=== PATIENT | male | born 1955 | race Caucasian/White ===

== ENCOUNTER 2020-09-11 09:22 | Inpatient (IN) | payer BC ==
[2020-09-11] MEDS ORDERED: Iopamidol-370 76% 500 ML 1 ML ONE (10:28)
--- NOTE | 2020-09-11 10:41 | CT ---
Exam: CT angiogram of the chest HISTORY: Stage IV lung cancer. Patient is undergoing chemotherapy and radiation therapy COMPARISON: None TECHNIQUE: CT angiogram of the chest is performed in the axial plane. Three-dimensional reformatted i mages are submitted for interpretation FINDINGS: Mediastinum: Enlarged prevascular lymph nodes. Ict Educator lymph node measures 2.1 x 1.8 cm. Enlar ged subcarinal lymph node measuring 1.7 x 1.5 cm. There is bilateral hilar lymphadenopathy. HEART: Normal size. No significant pericardial fluid. Aorta: No aneurysm or dissection Upper solid abdominal viscera: No abnormality enhancement. Trachea and central bronchi: Patent Pleural spaces: No effusion Lung parenchyma: Multifocal consolidation probably peripheral in location. Possibility of posttreatme nt change and/or residual tumor in the right lower lobe is suspected. Post pneumonia or atelectasis cannot be excluded. Chronic changes in mild bronchiectasis in the left lower lobe is noted. Pneumothorax: None Osseous structures: Stable multifocal osseous metastases with sclerotic and lytic foci. No evidence o f a pathologic fracture. Pulmonary arteries: Adequate contrast opacification pulmonary arterial system to the level of segment al arteries. No filling defect to suggest pulmonary embolism IMPRESSION: 1. No evidence of pulmonary artery embolism to the level of segmental arteries 2. Consolidation right lower lobe due to atelectasis, post treatment change or pneumonia. Residual tu mor cannot be excluded. 3. Osseous metastases without pathologic fracture 4. Hilar and mediastinal lymphadenopathy due to metastases
[2020-09-11] MEDS ORDERED: Ondansetron PF 4 MG/2 ML Vial ONE (10:55)
[2020-09-11] MEDS ORDERED: Cefepime 2 GM VIAL ONE ×2 (11:25→11:26)
[2020-09-11 11:35] LABS: Bacteria/HPF None Seen HPF (None Seen); Bilirubin Negative (Negative); Blood, Urine Negative (Negative); Clarity Clear (Clear); Glucose, Urine (Dipstick) 200 mg/dL (Negative); Ketone, Urine 60 mg/dL (Negative); Leukocyte Negative Leu/uL (Negative); Nitrite Negative (Negative); Protein, Urine (Dipstick) 30 mg/dL (Neg-Trace); Squamous Epithelial 0-3 HPF (0-3); Urobilinogen Normal mg/dL (Less than 2)
[2020-09-11 11:38] LABS: Specific Gravity, Urine 1.047 (1.002-1.036)
[2020-09-11] MEDS ORDERED: Ondansetron ODT 4 MG TAB PO PRN (12:16)
[2020-09-11] MEDS ORDERED: HYDROcodone/Acetaminophen 5/325 mg Tablet PO PRN (12:16)
[2020-09-11] MEDS ORDERED: Calcium Carbonate 500 MG ChewTAB PO PRN (12:16)
[2020-09-11] MEDS ORDERED: Guaifenesin DM 100-10/5 ML UDCUP PO PRN (12:16)
--- NOTE | 2020-09-11 12:25 | PDOC.HHP ---
Hospitalist HPI fever sob chest pain History of Present Illness: Case of an 64y/o male with a pmhx of hld, htn and stage 4 lung cancer on chemo + radio, last chemo was sep 02 last radio on may 05, who comes to hospital due to fever dyspnea and chest pain. patient presents as a transfer from the [facility] emergency department secondary to chest pain. The patient states that he was seen at [facility] in [facility] the night before last for fever and dyspnea. He states that he started running fever this past Wednesday evening and that he has been running fever ever since. He and his note that he was evaluated and that his oncologist was contacted at that time. They state that his evaluation was unremarkable and they sent him home on 2 antibiotics. He reported to the [place] emergency department last night secondary to chest pain. He notes that at approximately midnight he began to have substernal chest pain. He cannot describe the pain, however he describes it as a constant pain. He denies any exacerbating or relieving factors. At the ED patient was diagnosed with sepsis secondary to pneumonia and hospitalist was called for further evaluation and management. Past History: PMHx: as above PSHx: vasectomy, appendectomy. hernia repair, tonsillectomy FHx: hnt Social: denies use of alcohol tabacco and any other drugs Hospitalist HPI ROS All other systems reviewed; all pertinent +/- noted in HPI/Subj Hospitalist Exam General Appearance: NAD, awake alert Eye: PERRL, anicteric sclera ENT: normocephalic atraumatic, no oropharyngeal lesions Neck: supple, symmetric, no JVD, no thyromegaly Heart: RRR, no murmur, no gallops, no rubs Respiratory: CTAB, no wheezes, no rales, no ronchi Gastrointestinal: soft, non-tender, non-distended Extremities: no cyanosis, no clubbing, no edema Skin: normal turgor, no lesions, no rashes Neurological: cranial nerve grossly intact, normal sensation to touch, no weakness Musculoskeletal: normal tone, normal strength, no muscle wasting Psychiatric: normal affect, normal behavior, A&O x 3 Hospitalist Results Lab results: Laboratory Last Values Lactic Acid 1.7 mmol/L (0.5-2.2) 09/11/20 11:42 Troponin I Less than 0.010 ng/mL (< 0.028) 09/11/20 10:19 Urine Color Yellow (Yellow) 09/11/20 10:50 Urine Clarity Clear (Clear) 09/11/20 10:50 Urine pH 6.0 (5.0-9.0) 09/11/20 10:50 Ur Specific [place] 1.047 (1.002-1.036) H 09/11/20 10:50 Urine Protein 30 mg/dL (Neg-Trace) A 09/11/20 10:50 Urine Glucose (UA) 200 mg/dL (Negative) A 09/11/20 10:50 Urine Ketones 60 mg/dL (Negative) A 09/11/20 10:50 Urine Blood Negative (Negative) 09/11/20 10:50 Urine Nitrite Negative (Negative) 09/11/20 10:50 Urine Bilirubin Negative (Negative) 09/11/20 10:50 Urine Urobilinogen Normal mg/dL (Less than 2) 09/11/20 10:50 Ur Leukocyte Esterase Negative Linette/uL (Negative) 09/11/20 10:50 Urine RBC 4-6 HPF (0-3) A 09/11/20 10:50 Urine WBC 4-6 HPF (0-3) A 09/11/20 10:50 Ur Squamous Epith Cells 0-3 HPF (0-3) 09/11/20 10:50 Urine Bacteria None Seen HPF (None Seen) 09/11/20 10:50 Hospitalist H&P A/P (1) Sepsis Code(s): A41.9 - SEPSIS, UNSPECIFIED ORGANISM Status: Acute (2) Pneumonia Code(s): J18.9 - PNEUMONIA, UNSPECIFIED ORGANISM Status: Acute (3) HTN (hypertension) Code(s): I10 - ESSENTIAL (PRIMARY) HYPERTENSION Status: Acute (4) HLD (hyperlipidemia) Code(s): E78.5 - HYPERLIPIDEMIA, UNSPECIFIED Status: Acute (5) Stage 4 lung cancer Code(s): C34.90 - MALIGNANT NEOPLASM OF UNSP PART OF UNSP BRONCHUS OR LUNG Status: Acute Plan: Case of an 64y/o male with the stated pmhx who present with sepsis secondary to pna sepsis / pna - fever + bandemia with a chest ct with a rll consolidation - will start cefepime + vanc - 02 supplementation if needed - duo nebs - f/u blood cultures - normal LA - ivfs hnt - continue home meds hld - continue home meds stage 4 lung ca - oncologist from [facility] - on yolanda - oncology consuled - pain management chest pain - troponin negative x2, will continue to trend - ekg w/o st ischemic change - likely not of cardiac origen
[2020-09-11] MEDS ORDERED: Potassium Chloride 20 MEQ TAB PO SCH (12:30)
[2020-09-11 13:14] LABS: Troponin I Less than 0.010 ng/mL (< 0.028)
[2020-09-11] MEDS: Sodium Chloride 0.9% 1,000 ML IV SCH (15:57)
[2020-09-11] MEDS: HYDROcodone/Acetaminophen 5/325 mg Tablet PO PRN ×2 (15:57→20:35)
[2020-09-11 16:01] VITALS: BMI 27.3
[2020-09-11 16:21] LABS: Troponin I Less than 0.010 ng/mL (< 0.028)
[2020-09-11] MEDS ORDERED: VANCOMYCIN 2 GRAM/400 ML BAG 2 GM in Premix Bag 1 BAG IVPB SCH (16:30)
[2020-09-11] MEDS: Ondansetron PF 4 MG/2 ML Vial IVP PRN (18:05)
[2020-09-11] MEDS ORDERED: Promethazine 25 MG TAB PO SCH (20:15)
[2020-09-11] MEDS ORDERED: Metoclopramide HCl 10 MG TAB PO SCH (20:15)
[2020-09-11] MEDS ORDERED: fentaNYL 50 mcg/hour Patch TD SCH (21:00)
[2020-09-11] MEDS: Cefepime 2 GM in Sodium Chloride 0.9% 100 ML IVPB SCH (22:15)
[2020-09-12] MEDS: HYDROcodone/Acetaminophen 5/325 mg Tablet PO PRN ×4 (01:02→20:05)
[2020-09-12 04:30] LABS: ALT (SGPT) 9 U/L (8-55); AST (SGOT) 12 U/L (5-34); Albumin 2.7 g/dL (3.4-4.8); Alkaline Phosphatase 83 U/L (40-110); Anion Gap 12 mmol/L (10-20); BUN (Urea Nitrogen) 4 mg/dL (8.4-25.7); Bilirubin, Total 0.6 mg/dL (0.2-1.2); Calc. Creatinine Clearance 186 mL/min (70-130); Calcium 8.3 mg/dL (7.8-10.44); Carbon Dioxide 27 mmol/L (23-31); Chloride 100 mmol/L (98-107); Globulin 4.1 g/dL (2.4-3.5); Glucose 124 mg/dL (80-115); Protein, Total 6.8 g/dL (5.8-8.1); Sodium 136 mmol/L (136-145)
[2020-09-12 04:34] LABS: Potassium 2.8 mmol/L (3.5-5.1)
[2020-09-12 04:42] LABS: Band 10 % (5-11); Hemoglobin 8.2 g/dL (14.0-18.0); Hypochromia SLIGHT = 6-15 cells (100X) (0-5/hpf); Lymphocytes 30 % (21-51); MDiff Complete? YES; Mean Corpuscular HGB CONC 31.5 g/dL (32.0-36.0); Mean Corpuscular Volume 88.8 fL (78.0-98.0); Mean Platelet Volume 7.9 fL (7.4-10.4); Monocytes 32 % (0-10); Neutrophil 28 % (42-75); Nucleated RBC 1 % (0); Platelet Count 237 thou/uL (130-400); Platelet Morphology Comment Appears Adequate; RBC Distribution Width 16.3 % (11.5-14.5); Red Blood Cell (RBC) Count 2.92 mill/uL (4.70-6.10); Reflex for Review?? YES; White Blood Cell (WBC) Count 1.6 thou/uL (4.8-10.8)
[2020-09-12] MEDS ORDERED: Potassium Chloride 20 MEQ TAB PO SCH (04:45)
[2020-09-12] MEDS: VANCOMYCIN 1.75 GM/350 ML BAG 1.75 GM in Premix Bag 1 BAG IVPB SCH ×2 (06:20→18:23)
[2020-09-12] MEDS: Sodium Chloride 0.9% 1,000 ML IV SCH ×2 (06:22→16:34)
[2020-09-12] MEDS: Ondansetron PF 4 MG/2 ML Vial IVP PRN (06:23)
--- NOTE | 2020-09-12 07:29 | PDOC.HOSPP ---
- Subjective Encounter Date: 09/12/20 Encounter Time: 07:27 Subjective: fever/cchills since admission. chest pain is chronic - Objective Vital Signs & Weight: Vital Signs (12 hours) Temp Pulse Resp BP Pulse Ox 09/12/20 03:51 98.6 F 106 H 18 105/70 94 L 09/12/20 00:44 95 09/12/20 00:08 94 L 09/12/20 00:00 97.6 F 112 H 20 127/69 96 09/11/20 19:28 16 96 Weight Weight 207 lb 11.2 oz I&O: 09/11/20 09/12/20 09/13/20 06:59 06:59 06:59 Intake Total 680 Balance 680 Result Diagrams: 09/12/20 03:32 09/12/20 03:32 Hospitalist ROS - Medication Medications: Active Medications Generic Name Dose Route Start Last Admin Trade Name Freq PRN Reason Stop Dose Admin Hydrocodone Bitart/Acetaminophen 2 tab 09/11/20 12:16 09/12/20 06:25 Hydrocodone/Acetaminophen 5/325 Mg Tablet PO 2 tab Q4H PRN Administration Severe Pain (7-10) Albuterol/Ipratropium 3 ml 09/11/20 13:00 09/12/20 00:44 Ipratropium/Albuterol Sulfate 3 Ml Neb NEB 3 ml [id number] CHRISSIE Administration Fentanyl 50 mcg 09/11/20 21:00 09/11/20 20:23 Fentanyl 50 Mcg/Hour Patch TD 50 mcg Q3D CHRISSIE Administration Cefepime HCl 2 gm/ Sodium 100 mls @ 200 mls/hr 09/11/20 23:00 09/11/20 22:15 Chloride IVPB 100 mls 1100,2300 CHRISSIE Administration Sodium Chloride 1,000 mls @ 70 mls/hr 09/11/20 12:30 09/12/20 06:22 Normal Saline 0.9% IV 1,000 mls .[id number] CHRISSIE Administration Vancomycin HCl 1.75 gm/ Device 350 mls @ 175 mls/hr 09/12/20 06:00 09/12/20 06:20 IVPB 350 mls 0600,1800 CHRISSIE Administration Ondansetron HCl 4 mg 09/11/20 12:16 09/12/20 06:23 Ondansetron Pf 4 Mg/2 Ml Vial IVP 4 mg Q6H PRN Administration Nausea/Vomiting Hospitalist Exam Vitals: Vital Signs (12 hours) Temp Pulse Resp BP Pulse Ox 09/12/20 03:51 98.6 F 106 H 18 105/70 94 L 09/12/20 00:44 95 09/12/20 00:08 94 L 09/12/20 00:00 97.6 F 112 H 20 127/69 96 09/11/20 19:28 16 96 Weight Weight 207 lb 11.2 oz General Appearance: awake alert Neck: no JVD Heart: RRR, no murmur Respiratory - other findings: bilat basilar rhonchi Gastrointestinal: soft, non-distended, no palpable masses Extremities: no edema Hosp A/P (1) Pneumonia Code(s): J18.9 - PNEUMONIA, UNSPECIFIED ORGANISM Status: Acute Qualifiers: Pneumonia type: due to Pneumococcus Laterality: right Lung location: lower lobe of lung Qualified Code(s): J13 - Pneumonia due to Streptococcus pneumoniae (2) Leukopenia due to antineoplastic chemotherapy Code(s): D70.1 - AGRANULOCYTOSIS SECONDARY TO CANCER CHEMOTHERAPY; T45.1X5A - ADVERSE EFFECT OF ANTINEOPLASTIC AND IMMUNOSUP DRUGS, INIT Status: Acute (3) Anticoagulant long-term use Code(s): Z79.01 - NURSING HOME (CURRENT) USE OF ANTICOAGULANTS Status: Chronic (4) HLD (hyperlipidemia) Code(s): E78.5 - HYPERLIPIDEMIA, UNSPECIFIED Status: Chronic Qualifiers: Hyperlipidemia type: unspecified Qualified Code(s): E78.5 - Hyperlipidemia, unspecified (5) HTN (hypertension) Code(s): I10 - ESSENTIAL (PRIMARY) HYPERTENSION Status: Chronic Qualifiers: Hypertension type: essential hypertension Qualified Code(s): I10 - Essential (primary) hypertension (6) Stage 4 lung cancer Code(s): C34.90 - MALIGNANT NEOPLASM OF UNSP PART OF UNSP BRONCHUS OR LUNG Status: Chronic Qualifiers: Laterality: right Qualified Code(s): C34.91 - Malignant neoplasm of u nspecified part of right bronchus or lung - Plan blood C&S pending cont broad spectrum antibx monitor WBC, 1 week post chemotx Hx DVT- cont anticoag
[2020-09-12] MEDS: Promethazine 25 MG TAB PO SCH (08:51)
[2020-09-12] MEDS: Senokot 8.6 MG TAB PO SCH (08:51)
[2020-09-12] MEDS: Metoclopramide HCl 10 MG TAB PO SCH ×3 (08:52→16:00)
[2020-09-12] MEDS: Folic Acid 1 MG TAB PO SCH (08:52)
[2020-09-12] MEDS ORDERED: fentaNYL 50 mcg/hour Patch TD SCH ×2 (09:00→21:00)
[2020-09-12] MEDS ORDERED: Prevnar 13-Val Conj/PF 0.5 ML SYRINGE IM ONE (09:00)
[2020-09-12] MEDS: Apixaban 5 MG TAB PO SCH ×2 (10:35→20:44)
[2020-09-12] MEDS: Amlodipine 5 MG TAB PO SCH (10:40)
[2020-09-12] MEDS: Metoprolol Tartrate 25 MG TAB PO SCH ×2 (10:41→20:05)
[2020-09-12] MEDS: Cefepime 2 GM in Sodium Chloride 0.9% 100 ML IVPB SCH ×2 (11:44→22:24)
[2020-09-12] MEDS: HYDROmorphone 2 MG TAB PO PRN ×2 (18:23→22:24)
[2020-09-13] MEDS: HYDROcodone/Acetaminophen 5/325 mg Tablet PO PRN ×3 (00:09→20:40)
[2020-09-13] MEDS: HYDROmorphone 2 MG TAB PO PRN ×5 (03:01→22:53)
[2020-09-13] MEDS: Sodium Chloride 0.9% 1,000 ML IV SCH (03:02)
[2020-09-13 05:53] LABS: Vancomycin, Trough 11.3 ug/mL
[2020-09-13] MEDS: VANCOMYCIN 1.75 GM/350 ML BAG 1.75 GM in Premix Bag 1 BAG IVPB SCH (06:08)
[2020-09-13] MEDS: Amlodipine 5 MG TAB PO SCH (08:05)
[2020-09-13] MEDS: Metoclopramide HCl 10 MG TAB PO SCH ×3 (08:05→17:16)
[2020-09-13] MEDS: Promethazine 25 MG TAB PO SCH (08:05)
[2020-09-13] MEDS: Metoprolol Tartrate 25 MG TAB PO SCH ×2 (08:05→20:39)
[2020-09-13] MEDS: Apixaban 5 MG TAB PO SCH ×2 (08:06→20:39)
[2020-09-13] MEDS: Senokot 8.6 MG TAB PO SCH (08:06)
[2020-09-13] MEDS: Folic Acid 1 MG TAB PO SCH (08:06)
[2020-09-13 08:31] LABS: Anion Gap 11 mmol/L (10-20); BUN (Urea Nitrogen) 4 mg/dL (8.4-25.7); Calc. Creatinine Clearance 200 mL/min (70-130); Carbon Dioxide 27 mmol/L (23-31); Chloride 103 mmol/L (98-107); Glucose 89 mg/dL (80-115); Sodium 138 mmol/L (136-145)
[2020-09-13 08:32] LABS: Potassium 2.9 mmol/L (3.5-5.1)
[2020-09-13 08:36] LABS: Anisocytosis SLIGHT = 6-15 cells (100X) (0-5/hpf); Band 3 % (5-11); Eosinophils 1 % (0-10); Hemoglobin 7.9 g/dL (14.0-18.0); Lymphocytes 11 % (21-51); MDiff Complete? YES; Mean Corpuscular HGB CONC 31.8 g/dL (32.0-36.0); Mean Corpuscular Hemoglobin 28.2 pg (27.0-31.0); Mean Corpuscular Volume 88.9 fL (78.0-98.0); Mean Platelet Volume 7.4 fL (7.4-10.4); Monocytes 36 % (0-10); Neutrophil 48 % (42-75); Platelet Count 285 thou/uL (130-400); Platelet Morphology Comment Appears Adequate; RBC Distribution Width 16.5 % (11.5-14.5); White Blood Cell (WBC) Count 1.7 thou/uL (4.8-10.8)
[2020-09-13] MEDS ORDERED: Potassium Chloride 20 MEQ TAB PO SCH ×2 (11:30→12:00)
[2020-09-13] MEDS: Cefepime 2 GM in Sodium Chloride 0.9% 100 ML IVPB SCH ×2 (11:49→22:54)
--- NOTE | 2020-09-13 12:06 | PDOC.HOSPP ---
- Subjective Encounter Date: 09/13/20 Encounter Time: 12:06 Subjective: pt seen on f/u for pneumonia and chest pain refers is feeling better today, does complained of having another episode of chest pain during the morning, he states he felt some fever overnigh but none were charted. denies cough sob palpitations or diaphoresis - Objective Vital Signs & Weight: Vital Signs (12 hours) Temp Pulse Resp BP BP Pulse Ox 09/13/20 08:05 91 09/13/20 08:00 97.8 F 91 18 94/55 L 96 09/13/20 06:10 88 16 09/13/20 04:00 97.7 F 85 16 99/61 95 09/13/20 00:31 95 14 95 Weight Admit Weight 207 lb 11.2 oz Weight 207 lb 11.2 oz I&O: 09/12/20 09/13/20 09/14/20 06:59 06:59 06:59 Intake Total 680 3790 Output Total 500 Balance 680 3290 Result Diagrams: 09/13/20 07:35 09/13/20 07:35 Hospitalist ROS - Review of Systems All other systems reviewed; all pertinent +/- noted in HPI/Subj - Medication Medications: Active Medications Generic Name Dose Route Start Last Admin Trade Name Freq PRN Reason Stop Dose Admin Hydrocodone Bitart/Acetaminophen 2 tab 09/11/20 12:16 09/13/20 06:11 Hydrocodone/Acetaminophen 5/325 Mg Tablet PO 2 tab Q4H PRN Administration Severe Pain (7-10) Albuterol/Ipratropium 3 ml 09/11/20 13:00 09/13/20 06:10 Ipratropium/Albuterol Sulfate 3 Ml Neb NEB 3 ml [id number] CHRISSIE Administration Amlodipine Besylate 5 mg 09/12/20 09:00 09/13/20 08:05 Amlodipine 5 Mg Tab PO 5 mg DAILY CHRISSIE Administration Apixaban 5 mg 09/12/20 09:00 09/13/20 08:06 Apixaban 5 Mg Tab PO 5 mg BID CHRISSIE Administration Folic Acid 1 mg 09/12/20 09:00 09/13/20 08:06 Folic Acid 1 Mg Tab PO 1 mg DAILY CHRISSIE Administration Hydromorphone HCl 2 mg 09/12/20 07:14 09/13/20 08:03 Hydromorphone 2 Mg Tab PO 2 mg Q4H PRN Administration Moderate to Severe Pain (6-10) Cefepime HCl 2 gm/ Sodium 100 mls @ 200 mls/hr 09/11/20 23:00 09/13/20 11:49 Chloride IVPB 100 mls 1100,2300 CHRISSIE Administration Metoclopramide HCl 10 mg 09/12/20 08:00 09/13/20 08:05 Metoclopramide Hcl 10 Mg Tab PO 10 mg TID-WM CHRISSIE Administration Metoprolol Tartrate 25 mg 09/12/20 09:00 09/13/20 08:05 Metoprolol Tartrate 25 Mg Tab PO 25 mg BID CHRISSIE Administration Ondansetron HCl 4 mg 09/11/20 12:16 09/12/20 06:23 Ondansetron Pf 4 Mg/2 Ml Vial IVP 4 mg Q6H PRN Administration Nausea/Vomiting Pantoprazole Sodium 40 mg 09/12/20 09:00 09/13/20 08:05 Pantoprazole 40 Mg Tab PO 40 mg DAILY CHRISSIE Administration Potassium Chloride 40 meq 09/13/20 11:30 09/13/20 11:49 Potassium Chloride 20 Meq Tab PO 09/13/20 12:30 40 meq NOW CHRISSIE Administration Promethazine HCl 25 mg 09/12/20 09:00 09/13/20 08:05 Promethazine 25 Mg Tab PO 25 mg DAILY CHRISSIE Administration Senna 3 tab 09/12/20 09:00 09/13/20 08:06 Senokot 8.6 Mg Tab PO 3 tab DAILY CHRISSIE Administration Hospitalist Exam Vitals: Vital Signs (12 hours) Temp Pulse Resp BP BP Pulse Ox 09/13/20 08:05 91 09/13/20 08:00 97.8 F 91 18 94/55 L 96 09/13/20 06:10 88 16 09/13/20 04:00 97.7 F 85 16 99/61 95 09/13/20 00:31 95 14 95 Weight Admit Weight 207 lb 11.2 oz Weight 207 lb 11.2 oz General Appearance: NAD, awake alert Eye: PERRL, anicteric sclera ENT: normocephalic atraumatic, no oropharyngeal lesions Neck: supple, symmetric, no JVD, no thyromegaly Heart: RRR, no murmur, no gallops, no rubs Respiratory: CTAB, no wheezes, no rales, no ronchi Gastrointestinal: soft, non-tender, non-distended Extremities: no cyanosis, no clubbing, no edema Skin: normal turgor, no lesions, no rashes Neurological: cranial nerve grossly intact, normal sensation to touch, no weakness Musculoskeletal: normal tone, normal strength, no muscle wasting Psychiatric: normal affect, normal behavior, A&O x 3 Hosp A/P (1) Sepsis Code(s): A41.9 - SEPSIS, UNSPECIFIED ORGANISM Status: Acute (2) Pneumonia Code(s): J18.9 - PNEUMONIA, UNSPECIFIED ORGANISM Status: Acute Qualifiers: Pneumonia type: due to Pneumococcus Laterality: right Lung location: lower lobe of lung Qualified Code(s): J13 - Pneumonia due to Streptococcus pneumoniae (3) HTN (hypertension) Code(s): I10 - ESSENTIAL (PRIMARY) HYPERTENSION Status: Chronic Qualifiers: Hypertension type: essential hypertension Qualified Code(s): I10 - Essential (primary) hypertension (4) HLD (hyperlipidemia) Code(s): E78.5 - HYPERLIPIDEMIA, UNSPECIFIED Status: Chronic Qualifiers: Hyperlipidemia type: unspecified Qualified Code(s): E78.5 - Hyperlipidemia, unspecified (5) Stage 4 lung cancer Code(s): C34.90 - MALIGNANT NEOPLASM OF UNSP PART OF UNSP BRONCHUS OR LUNG Status: Chronic Qualifiers: Laterality: right Qualified Code(s): C34.91 - Malignant neoplasm of unspecified part of right bronchus or lung - Plan sepsis / pna - improved bandemia - on cefepime + vanc - 02 supplementation if needed - duo nebs - cultures negatives up till now hnt - continue home meds hld - continue home meds stage 4 lung ca - oncologist from [facility] - on chemo - pain management chest pain - troponin negative x3, - ekg w/o st ischemic change - had another episode of chest pain this morning, its unclear to me its etiology. patient refered he received radiation on that area but it had never hurt before, last rad on 2019 - would consider stress test after pna tx - potassium was at 2.9 will replace, mg 1.8 will f/u
[2020-09-13] MEDS ORDERED: Vancomycin HCl 1.25 GM in Sodium Chloride 0.9% 250 ML 250 ML IVPB SCH (14:00)
--- NOTE | 2020-09-13 19:28 | CON ---
DATE OF CONSULTATION: REASON FOR CONSULTATION: Lung cancer. HISTORY OF PRESENT ILLNESS: Mr. Key is a 64-year-old gentleman who was diagnosed with stage IV small-cell lung cancer in 04/2020. He underwent radiation and then started chemotherapy with carboplatin, Alimta, and Keytruda. He progressed recently with enlargement in his mediastinal lymph nodes. He started Taxotere chemotherapy with the 1st dose on 09/04. He is managed by [facility] in [place]. He did not receive Neulasta with treatment. He has been running fever for the last several days and talked to his oncologist in [place], who recommended he go to the emergency room. He was transferred here as there was no hospital beds available in [place]. He has been treated with antibiotics and has improvement. His breathing has improved over the last several days. He does complain of constant midsternal pain where he had radiation, but it is managed well with his home medications. PAST MEDICAL HISTORY: 1. Extensive stage small-cell lung cancer. 2. History of blood clots. PAST SURGICAL HISTORY: 1. Vasectomy. 2. Appendectomy. 3. Hernia repair. 4. Tonsillectomy. ALLERGIES: TO CODEINE, LISINOPRIL, AND PENICILLIN. CURRENT MEDICATIONS: 1. Hephzibah. 2. Norvasc. 3. Eliquis. 4. Cefepime. 5. Duragesic patch. 6. Folvite. 7. Robitussin. 8. Dilaudid. 9. Reglan. 10. Lopressor. 11. Vancomycin. 12. Zofran. 13. Protonix. 14. MiraLAX. 15. Phenergan. 16. Senokot. FAMILY HISTORY: Noncontributory. SOCIAL HISTORY: , lives with spouse. No alcohol, tobacco, or illicit drug use. REVIEW OF SYSTEMS: A 12-point review of systems is negative except for noted in HPI. PHYSICAL EXAMINATION: VITAL SIGNS: Temperature is 97.8, pulse is 91, respiratory rate is 16, BP is 111/57, and he is 96 on room air. GENERAL: A well-developed, well-nourished male, in no acute distress. HEENT: Normocephalic and atraumatic. Pupils equal and reactive to light. NECK: Supple. CV: Regular rate and rhythm. LUNGS: Clear anterior. ABDOMEN: Soft. Bowel sounds are positive. EXTREMITIES: No clubbing or cyanosis. NEUROLOGIC: Nonfocal. PERTINENT LABORATORY DATA AND X-RAYS: WBCs are 1.7, hemoglobin 7.9, hematocrit 24.9, platelet count is 285,000, 48% neutrophils, 3% bands, 11% lymphocytes, and 36% monocytes. Sodium 138, potassium 2.9, chloride 103, CO2 is 27, BUN is 4, creatinine 0.51, and calcium 8. Bilirubin 0.6, AST is 12, ALT is 9, and alkaline phosphatase is 83. Serum total protein is 6.8, albumin 2.7, and globulin 4.1. Radiology showed consolidation of the right lower lobe, consistent with pneumonia. ASSESSMENT: 1. Extensive stage small-cell lung cancer, on chemotherapy. 2. Neutropenia secondary to Taxotere chemo. 3. Pneumonia. 4. Chest wall pain. DISCUSSION: The patient has been treated with empiric antibiotics. His breathing has improved and he remains afebrile. His home pain medications of fentanyl and Dilaudid have been resumed. The patient has received his first dose of Taxotere per his . He did not receive any Neulasta support. He is day 9 post treatment, which would be his dangelo with the drop in both the white blood cells and red blood cells. I will give him a short burst of Neupogen over the next couple of days and his white count should improve rapidly. His oncologist is aware of his admission. He can be discharged once he is stable. I think his chest pain is likely inflammatory from his radiation, even though it was several months ago. He likely has some type of scar tissue at this point. 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 Thank you for the consult. Job ID: [id number]
[2020-09-13] MEDS: VANCOMYCIN 1.25 GM/250 ML BAG 1.25 GM in Premix Bag 1 BAG IVPB SCH (20:41)
[2020-09-14] MEDS: HYDROcodone/Acetaminophen 5/325 mg Tablet PO PRN ×3 (00:22→22:09)
[2020-09-14] MEDS: HYDROmorphone 2 MG TAB PO PRN (05:05)
[2020-09-14 05:06] LABS: Hemoglobin 8.2 g/dL (14.0-18.0); Mean Corpuscular Hemoglobin 28.9 pg (27.0-31.0); Mean Corpuscular Volume 90.2 fL (78.0-98.0); Mean Platelet Volume 7.4 fL (7.4-10.4); Platelet Count 293 thou/uL (130-400); Red Blood Cell (RBC) Count 2.84 mill/uL (4.70-6.10); White Blood Cell (WBC) Count 4.2 thou/uL (4.8-10.8)
[2020-09-14] MEDS: VANCOMYCIN 1.25 GM/250 ML BAG 1.25 GM in Premix Bag 1 BAG IVPB SCH ×3 (05:06→20:10)
[2020-09-14 05:07] LABS: Band 21 % (5-11); Lymphocytes 20 % (21-51); MDiff Complete? YES; Metamyelocyte 1 % (0-0); Monocytes 16 % (0-10); Myelocyte 4 % (0-0); Neutrophil 38 % (42-75)
[2020-09-14 05:24] LABS: Anion Gap 13 mmol/L (10-20); BUN (Urea Nitrogen) 6 mg/dL (8.4-25.7); Calc. Creatinine Clearance 189 mL/min (70-130); Calcium 8.1 mg/dL (7.8-10.44); Carbon Dioxide 22 mmol/L (23-31); Chloride 104 mmol/L (98-107); Glucose 102 mg/dL (80-115); Potassium 3.5 mmol/L (3.5-5.1); Sodium 135 mmol/L (136-145)
[2020-09-14] MEDS: Amlodipine 5 MG TAB PO SCH (07:59)
[2020-09-14] MEDS: Apixaban 5 MG TAB PO SCH ×2 (08:00→20:03)
[2020-09-14] MEDS: Metoprolol Tartrate 25 MG TAB PO SCH ×2 (08:00→20:08)
[2020-09-14] MEDS: Folic Acid 1 MG TAB PO SCH (08:00)
[2020-09-14] MEDS: Senokot 8.6 MG TAB PO SCH (08:00)
[2020-09-14] MEDS: Metoclopramide HCl 10 MG TAB PO SCH ×3 (08:00→17:57)
[2020-09-14] MEDS: Cefepime 2 GM in Sodium Chloride 0.9% 100 ML IVPB SCH ×2 (11:21→22:08)
[2020-09-14] MEDS ORDERED: Morphine 4 MG/ML VIAL SLOW IVP SCH (12:00)
[2020-09-14] MEDS ORDERED: HYDROmorphone 2 MG TAB PO SCH (13:00)
[2020-09-14 13:18] LABS: Vancomycin, Trough 15.2 ug/mL
[2020-09-14] MEDS: HYDROmorphone 2 MG TAB PO SCH ×3 (14:16→20:09)
--- NOTE | 2020-09-14 15:25 | PDOC.HOSPP ---
- Subjective Encounter Date: 09/14/20 Encounter Time: 15:25 Subjective: Mr. Key was seen today in follow-up of pneumonia, and chronic cancer related pain. He notes a new pain in his mid chest which has been constant. This started prior to admission. He says his pneumonia symptoms have improved. He is less short of breath. - Objective Vital Signs & Weight: Vital Signs (12 hours) Temp Pulse Resp BP Pulse Ox 09/14/20 13:05 80 12 09/14/20 11:56 97.6 F 94 18 143/86 H 95 09/14/20 08:00 97.9 F 104 H 20 114/67 93 L 09/14/20 07:59 88 09/14/20 06:34 88 12 Weight Admit Weight 207 lb 11.2 oz Weight 207 lb 11.2 oz I&O: 09/13/20 09/14/20 09/15/20 06:59 06:59 06:59 Intake Total 3790 3250 Output Total 500 2275 Balance 3290 975 Result Diagrams: 09/14/20 03:44 09/14/20 03:44 Hospitalist ROS - Medication Medications: Active Medications Generic Name Dose Route Start Last Admin Trade Name Freq PRN Reason Stop Dose Admin Hydrocodone Bitart/Acetaminophen 2 tab 09/11/20 12:16 09/14/20 11:19 Hydrocodone/Acetaminophen 5/325 Mg Tablet PO 2 tab Q4H PRN Administration Severe Pain (7-10) Albuterol/Ipratropium 3 ml 09/11/20 13:00 09/14/20 13:05 Ipratropium/Albuterol Sulfate 3 Ml Neb NEB 3 ml [id number] CHRISSIE Administration Amlodipine Besylate 5 mg 09/12/20 09:00 09/14/20 07:59 Amlodipine 5 Mg Tab PO 5 mg DAILY CHRISSIE Administration Apixaban 5 mg 09/12/20 09:00 09/14/20 08:00 Apixaban 5 Mg Tab PO 5 mg BID CHRISSIE Administration Folic Acid 1 mg 09/12/20 09:00 09/14/20 08:00 Folic Acid 1 Mg Tab PO 1 mg DAILY CHRISSIE Administration Hydromorphone HCl 2 mg 09/14/20 14:00 09/14/20 14:16 Hydromorphone 2 Mg Tab PO 2 mg Q4H CHRISSIE Administration Cefepime HCl 2 gm/ Sodium 100 mls @ 200 mls/hr 09/11/20 23:00 09/14/20 11:21 Chloride IVPB 100 mls 1100,2300 CHRISSIE Administration Vancomycin HCl 1.25 gm/ Device 250 mls @ 166.667 mls/hr 09/13/20 22:00 14:15 IVPB 250 mls 0600,1400,2200 CHRISSIE Administration Metoclopramide HCl 10 mg 09/12/20 08:00 09/14/20 11:40 Metoclopramide Hcl 10 Mg Tab PO 10 mg TID-WM CHRISSIE Administration Metoprolol Tartrate 25 mg 09/12/20 09:00 09/14/20 08:00 Metoprolol Tartrate 25 Mg Tab PO 25 mg BID CHRISSIE Administration Ondansetron HCl 4 mg 09/11/20 12:16 09/12/20 06:23 Ondansetron Pf 4 Mg/2 Ml Vial IVP 4 mg Q6H PRN Administration Nausea/Vomiting Pantoprazole Sodium 40 mg 09/12/20 09:00 09/14/20 08:00 Pantoprazole 40 Mg Tab PO 40 mg DAILY CHRISSIE Administration Senna 3 tab 09/12/20 09:00 09/14/20 08:00 Senokot 8.6 Mg Tab PO 3 tab DAILY CHRISSIE Administration Tbo-Filgrastim 480 mcg 09/13/20 15:00 09/14/20 14:15 Tbo-Filgrastim 480 Mcg/0.8 Ml Syringe SC 480 mcg Q24HR CHRISSIE Administration Hospitalist Exam Vitals: Vital Signs (12 hours) Temp Pulse Resp BP Pulse Ox 09/14/20 13:05 80 12 09/14/20 11:56 97.6 F 94 18 143/86 H 95 09/14/20 08:00 97.9 F 104 H 20 114/67 93 L 09/14/20 07:59 88 09/14/20 06:34 88 12 Weight Admit Weight 207 lb 11.2 oz Weight 207 lb 11.2 oz General Appearance: NAD, awake alert Eye: PERRL, anicteric sclera Heart: RRR, no murmur, no gallops, no rubs, normal peripheral pulses Respiratory: no wheezes, rales (at the bases) Gastrointestinal: soft, non-tender, non-distended, normal bowel sounds, no palpable masses, no hepatomegaly Extremities: no cyanosis, no edema Hosp A/P (1) Pneumonia Code(s): J18.9 - PNEUMONIA, UNSPECIFIED ORGANISM Status: Acute Qualifiers: Pneumonia type: due to Pneumococcus Laterality: right Lung location: lower lobe of lung Qualified Code(s): J13 - Pneumonia due to Streptococcus pneumoniae (2) HLD (hyperlipidemia) Code(s): E78.5 - HYPERLIPIDEMIA, UNSPECIFIED Status: Chronic Qualifiers: Hyperlipidemia type: unspecified Qualified Code(s): E78.5 - Hyperlipidemia, unspecified (3) HTN (hypertension) Code(s): I10 - ESSENTIAL (PRIMARY) HYPERTENSION Status: Chronic Qualifiers: Hypertension type: essential hypertension Qualified Code(s): I10 - Essential (primary) hypertension (4) Stage 4 lung cancer Code(s): C34.90 - MALIGNANT NEOPLASM OF UNSP PART OF UNSP BRONCHUS OR LUNG Status: Chronic Qualifiers: Laterality: right Qualified Code(s): C34.91 - Malignant neoplasm of unspecified part of right bronchus or lung (5) Chronic pain due to neoplasm Code(s): G89.3 - NEOPLASM RELATED PAIN (ACUTE) (CHRONIC) Status: Acute (6) Venous thromboembolism Code(s): I82.90 - ACUTE EMBOLISM AND THROMBOSIS OF UNSPECIFIED VEIN Status: Acute (7) Anticoagulant long-term use Code(s): Z79.01 - CUSTODIAL (CURRENT) USE OF ANTICOAGULANTS Status: Chronic - Plan * Pneumonia in immuno-compromised patient- continue Cefepime and Vancomycin * HTN- blood pressure is stable * Stage 4 lung cancer * Chronic cancer pain- will monitor his pain medication requirement- He has a Fentanyl patch, and will schedule Dilaudid and adjust medications if needed * History of Venous Thrombo-embolic disease- will continue Eliquis
[2020-09-14] MEDS: Polyethylene Glycol 3350 17 GM Packet PO PRN (18:01)
[2020-09-14] MEDS: Promethazine 25 MG TAB PO SCH (20:03)
[2020-09-14] MEDS: fentaNYL 50 mcg/hour Patch TD SCH (20:05)
[2020-09-15] MEDS: HYDROmorphone 2 MG TAB PO SCH ×6 (01:26→21:28)
[2020-09-15] MEDS: HYDROcodone/Acetaminophen 5/325 mg Tablet PO PRN (03:41)
[2020-09-15] MEDS: VANCOMYCIN 1.25 GM/250 ML BAG 1.25 GM in Premix Bag 1 BAG IVPB SCH ×3 (05:23→22:21)
[2020-09-15] MEDS ORDERED: Morphine 4 MG/ML VIAL ONE (05:47)
[2020-09-15] MEDS ORDERED: Morphine 4 MG/ML VIAL SLOW IVP SCH (06:00)
[2020-09-15 07:02] LABS: Hemoglobin 8.5 g/dL (14.0-18.0); Mean Corpuscular Hemoglobin 27.6 pg (27.0-31.0); Mean Platelet Volume 7.2 fL (7.4-10.4); Platelet Count 345 thou/uL (130-400); RBC Distribution Width 17.6 % (11.5-14.5); Red Blood Cell (RBC) Count 3.06 mill/uL (4.70-6.10); White Blood Cell (WBC) Count 17.1 thou/uL (4.8-10.8)
[2020-09-15 07:16] LABS: Anion Gap 10 mmol/L (10-20); BUN (Urea Nitrogen) 6 mg/dL (8.4-25.7); Calc. Creatinine Clearance 179 mL/min (70-130); Calcium 7.8 mg/dL (7.8-10.44); Carbon Dioxide 27 mmol/L (23-31); Chloride 103 mmol/L (98-107); Glucose 134 mg/dL (80-115); Sodium 137 mmol/L (136-145)
[2020-09-15 07:58] LABS: Band 52 % (5-11); Lymphocytes 1 % (21-51); MDiff Complete? YES; Metamyelocyte 4 % (0-0); Monocytes 4 % (0-10); Neutrophil 39 % (42-75); Toxic Granulation SLIGHT
[2020-09-15] MEDS: Senokot 8.6 MG TAB PO SCH (09:03)
[2020-09-15] MEDS: Polyethylene Glycol 3350 17 GM Packet PO PRN (09:03)
[2020-09-15] MEDS: Apixaban 5 MG TAB PO SCH ×2 (09:03→21:22)
[2020-09-15] MEDS: Potassium Chloride 20 MEQ TAB PO SCH (09:03)
[2020-09-15] MEDS: Amlodipine 5 MG TAB PO SCH (09:04)
[2020-09-15] MEDS: Folic Acid 1 MG TAB PO SCH (09:04)
[2020-09-15] MEDS: Metoclopramide HCl 10 MG TAB PO SCH ×3 (09:04→18:09)
[2020-09-15] MEDS: Cefepime 2 GM in Sodium Chloride 0.9% 100 ML IVPB SCH (10:06)
[2020-09-15] MEDS: Metoprolol Tartrate 25 MG TAB PO SCH ×2 (10:07→21:24)
--- NOTE | 2020-09-15 12:21 | PDOC.HOSPP ---
- Subjective Encounter Date: 09/15/20 Encounter Time: 12:19 Subjective: Mr. Key was seen today in follow-up of pneumonia and chest pain. He describes the pain as constant, and radiating straight through to his back. He does not endorse that it is burning in character, but can't really describe it much. - Objective Vital Signs & Weight: Vital Signs (12 hours) Temp Pulse Resp BP BP Pulse Ox 09/15/20 12:00 97.7 F 101 H 18 107/58 L 96 09/15/20 09:04 102 H 09/15/20 08:00 97.9 F 102 H 18 103/63 97 09/15/20 07:13 96 16 09/15/20 04:00 97.8 F 103 H 16 118/70 94 L 09/15/20 01:05 16 Weight Admit Weight 207 lb 11.2 oz Weight 207 lb 11.2 oz I&O: 09/14/20 09/15/20 09/16/20 06:59 06:59 06:59 Intake Total 3250 2210 Output Total 2275 1525 Balance 975 685 Result Diagrams: 09/15/20 06:30 09/15/20 06:30 Hospitalist ROS - Medication Medications: Active Medications Generic Name Dose Route Start Last Admin Trade Name Freq PRN Reason Stop Dose Admin Hydrocodone Bitart/Acetaminophen 2 tab 09/11/20 12:16 09/15/20 03:41 Hydrocodone/Acetaminophen 5/325 Mg Tablet PO 2 tab Q4H PRN Administration Severe Pain (7-10) Albuterol/Ipratropium 3 ml 09/11/20 13:00 09/15/20 07:13 Ipratropium/Albuterol Sulfate 3 Ml Neb NEB 3 ml [id number] CHRISSIE Administration Amlodipine Besylate 5 mg 09/12/20 09:00 09/15/20 09:04 Amlodipine 5 Mg Tab PO 5 mg DAILY CHRISSIE Administration Apixaban 5 mg 09/12/20 09:00 09/15/20 09:03 Apixaban 5 Mg Tab PO 5 mg BID CHRISSIE Administration Fentanyl 50 mcg 09/14/20 21:00 09/14/20 20:05 Fentanyl 50 Mcg/Hour Patch TD 50 mcg Q3DAYS@2100 CHRISSIE Administration Folic Acid 1 mg 09/12/20 09:00 09/15/20 09:04 Folic Acid 1 Mg Tab PO 1 mg DAILY CHRISSIE Administration Hydromorphone HCl 2 mg 09/14/20 14:00 09/15/20 10:06 Hydromorphone 2 Mg Tab PO 2 mg Q4H CHRISSIE Administration Cefepime HCl 2 gm/ Sodium 100 mls @ 200 mls/hr 09/11/20 23:00 09/15/20 10:06 Chloride IVPB 100 mls 1100,2300 CHRISSIE Administration Vancomycin HCl 1.25 gm/ Device 250 mls @ 166.667 mls/hr 09/13/20 22:00 09/15/20 05:23 IVPB 250 mls 0600,1400,2200 CHRISSIE Administration Metoclopramide HCl 10 mg 09/12/20 08:00 09/15/20 11:40 Metoclopramide Hcl 10 Mg Tab PO 10 mg TID-WM CHRISSIE Administration Metoprolol Tartrate 25 mg 09/12/20 09:00 09/15/20 10:07 Metoprolol Tartrate 25 Mg Tab PO Not Given BID CHRISSIE Ondansetron HCl 4 mg 09/11/20 12:16 09/12/20 06:23 Ondansetron Pf 4 Mg/2 Ml Vial IVP 4 mg Q6H PRN Administration Nausea/Vomiting Pantoprazole Sodium 40 mg 09/12/20 09:00 09/15/20 09:03 Pantoprazole 40 Mg Tab PO 40 mg DAILY CHRISSIE Administration Polyethylene Glycol 17 gm 09/12/20 07:14 09/15/20 09:03 Polyethylene Glycol 3350 17 Gm Packet PO 17 gm DAILYPRN PRN Administration Constipation Promethazine HCl 25 mg 09/14/20 21:00 09/14/20 20:03 Promethazine 25 Mg Tab PO Not Given HS CHRISSIE Senna 3 tab 09/12/20 09:00 09/15/20 09:03 Senokot 8.6 Mg Tab PO 3 tab DAILY CHRISSIE Administration Hospitalist Exam Vitals: Vital Signs (12 hours) Temp Pulse Resp BP BP Pulse Ox 09/15/20 12:00 97.7 F 101 H 18 107/58 L 96 09/15/20 09:04 102 H 09/15/20 08:00 97.9 F 102 H 18 103/63 97 09/15/20 07:13 96 16 09/15/20 04:00 97.8 F 103 H 16 118/70 94 L 09/15/20 01:05 16 Weight Admit Weight 207 lb 11.2 oz Weight 207 lb 11.2 oz General Appearance: NAD Eye: PERRL, anicteric sclera Heart: RRR, no murmur, no gallops, no rubs, normal peripheral pulses Respiratory: no wheezes, no ronchi, rales (at the bases, no rhonchi no wheezing) Gastrointestinal: soft, non-tender, non-distended, normal bowel sounds, no palpable masses, no hepatomegaly Extremities: no cyanosis (+ palpable d.p. pulses), 1+ LE edema Hosp A/P (1) Pneumonia Code(s): J18.9 - PNEUMONIA, UNSPECIFIED ORGANISM Status: Acute Qualifiers: Pneumonia type: due to Pneumococcus Laterality: right Lung location: lower lobe of lung Qualified Code(s): J13 - Pneumonia due to Streptococcus pneumoniae (2) HLD (hyperlipidemia) Code(s): E78.5 - HYPERLIPIDEMIA, UNSPECIFIED Status: Chronic Qualifiers: Hyperlipidemia type: unspecified Qualified Code(s): E78.5 - Hyperlipidemia, unspecified (3) HTN (hypertension) Code(s): I10 - ESSENTIAL (PRIMARY) HYPERTENSION Status: Chronic Qualifiers: Hypertension type: essential hypertension Qualified Code(s): I10 - Essential (primary) hypertension (4) Stage 4 lung cancer Code(s): C34.90 - MALIGNANT NEOPLASM OF UNSP PART OF UNSP BRONCHUS OR LUNG Status: Chronic Qualifiers: Laterality: right Qualified Code(s): C34.91 - Malignant neoplasm of unspecified part of right bronchus or lung (5) Chronic pain due to neoplasm Code(s): G89.3 - NEOPLASM RELATED PAIN (ACUTE) (CHRONIC) Status: Acute (6) Venous thromboembolism Code(s): I82.90 - ACUTE EMBOLISM AND THROMBOSIS OF UNSPECIFIED VEIN Status: Acute (7) Anticoagulant long-term use Code(s): Z79.01 - [facility] (CURRENT) USE OF ANTICOAGULANTS Status: Chronic - Plan * Pneumonia in immuno-compromised patient- continue Cefepime and Vancomycin- antibiotics can likely be de-escalated tomorrow * HTN- blood pressure is stable * Stage 4 lung cancer * Chronic cancer pain- He still does not have adequate pain control- will add Toradol as an option temporarily. Will add Gabapentin at bedtime. Je may need Palliative care consult, or Anesthesia consult to help with this as well. * History of VTE- continue Eliquis
[2020-09-15] MEDS: Gabapentin 100 MG CAP PO SCH (21:23)
[2020-09-15] MEDS: Promethazine 25 MG TAB PO SCH (21:24)
[2020-09-15] MEDS: Chlorhexidine Gluconate 15 ML UDCUP SSP SCH (21:25)
[2020-09-16] MEDS: Cefepime 2 GM in Sodium Chloride 0.9% 100 ML IVPB SCH ×3 (00:24→23:30)
[2020-09-16] MEDS: HYDROmorphone 2 MG TAB PO SCH ×6 (02:08→22:12)
[2020-09-16 05:05] LABS: Anion Gap 10 mmol/L (10-20); BUN (Urea Nitrogen) 6 mg/dL (8.4-25.7); Calc. Creatinine Clearance 170 mL/min (70-130); Calcium 7.9 mg/dL (7.8-10.44); Carbon Dioxide 27 mmol/L (23-31); Chloride 103 mmol/L (98-107); Glucose 113 mg/dL (80-115); Magnesium 1.5 mg/dL (1.6-2.6); Sodium 137 mmol/L (136-145)
[2020-09-16] MEDS: VANCOMYCIN 1.25 GM/250 ML BAG 1.25 GM in Premix Bag 1 BAG IVPB SCH ×3 (06:30→22:12)
[2020-09-16 07:14] LABS: Hemoglobin 8.1 g/dL (14.0-18.0); Mean Corpuscular HGB CONC 32.3 g/dL (32.0-36.0); Mean Corpuscular Hemoglobin 29.2 pg (27.0-31.0); Mean Corpuscular Volume 90.4 fL (78.0-98.0); Mean Platelet Volume 7.1 fL (7.4-10.4); Platelet Count 328 thou/uL (130-400); RBC Distribution Width 18.2 % (11.5-14.5); Red Blood Cell (RBC) Count 2.78 mill/uL (4.70-6.10); White Blood Cell (WBC) Count 20.4 thou/uL (4.8-10.8)
[2020-09-16] MEDS ORDERED: Potassium Chloride 20 MEQ/100 ML PREMIX BAG IVPB SCH (08:30)
[2020-09-16] MEDS ORDERED: Magnesium Sulfate 2 GM in Sodium Chloride 0.9% 100 ML IVPB SCH (08:30)
[2020-09-16 08:59] LABS: Band 36 % (5-11); Eosinophils 1 % (0-10); Lymphocytes 1 % (21-51); MDiff Complete? YES; Metamyelocyte 3 % (0-0); Monocytes 13 % (0-10); Myelocyte 4 % (0-0); Neutrophil 42 % (42-75); Nucleated RBC 1 % (0); Platelet Morphology Comment Appears Adequate; Polychromasia MODERATE = 3-4 cells (100X) (0-2/hpf); Toxic Granulation MODERATE
[2020-09-16] MEDS ORDERED: Magnesium 2 GM/50 ML 2 GM in Premix Bag 1 BAG IVPB SCH (10:00)
[2020-09-16] MEDS: Potassium Chloride 20 MEQ TAB PO SCH (10:02)
[2020-09-16] MEDS: Senokot 8.6 MG TAB PO SCH (10:04)
[2020-09-16] MEDS: Metoprolol Tartrate 25 MG TAB PO SCH ×2 (10:05→20:16)
[2020-09-16] MEDS: Metoclopramide HCl 10 MG TAB PO SCH ×3 (10:05→17:28)
[2020-09-16] MEDS: Folic Acid 1 MG TAB PO SCH (10:06)
[2020-09-16] MEDS: Amlodipine 5 MG TAB PO SCH (10:06)
[2020-09-16] MEDS: Apixaban 5 MG TAB PO SCH ×2 (10:06→20:14)
[2020-09-16] MEDS: Chlorhexidine Gluconate 15 ML UDCUP SSP SCH ×2 (11:35→20:18)
[2020-09-16] MEDS ORDERED: Potassium Chloride 20 MEQ TAB PO SCH (13:00)
--- NOTE | 2020-09-16 17:17 | PDOC.HOSPP ---
- Subjective Encounter Date: 09/16/20 Encounter Time: 17:15 Subjective: Mr. Key was seen today in follow-up of pneumonia and chronic cancer pain. He noted better control of his pain. No new complaints. - Objective Vital Signs & Weight: Vital Signs (12 hours) Temp Pulse Resp BP BP Pulse Ox 09/16/20 15:47 98.8 F 109 H 20 110/61 95 09/16/20 14:12 92 13 95 09/16/20 11:57 98 F 101 H 18 105/59 L 95 09/16/20 10:17 94 L 09/16/20 10:11 108 H 101/58 L 87 L 09/16/20 09:31 88 L 09/16/20 09:29 104 H 52 H 88 L 09/16/20 08:00 98.2 F 104 H 20 113/64 96 Weight Admit Weight 207 lb 11.2 oz Weight 207 lb 11.2 oz I&O: 09/15/20 09/16/20 09/17/20 06:59 06:59 06:59 Intake Total 2210 1980 Output Total 1525 300 300 Balance 685 1680 -300 Result Diagrams: 09/16/20 04:18 09/16/20 04:18 Hospitalist ROS - Medication Medications: Active Medications Generic Name Dose Route Start Last Admin Trade Name Freq PRN Reason Stop Dose Admin Hydrocodone Bitart/Acetaminophen 2 tab 09/11/20 12:16 09/15/20 03:41 Hydrocodone/Acetaminophen 5/325 Mg Tablet PO 2 tab Q4H PRN Administration Severe Pain (7-10) Albuterol/Ipratropium 3 ml 09/11/20 13:00 09/16/20 14:12 Ipratropium/Albuterol Sulfate 3 Ml Neb NEB 3 ml [id number] CHRISSIE Administration Amlodipine Besylate 5 mg 09/12/20 09:00 09/16/20 10:06 Amlodipine 5 Mg Tab PO Not Given DAILY CHRISSIE Apixaban 5 mg 09/12/20 09:00 09/16/20 10:06 Apixaban 5 Mg Tab PO 5 mg BID CHRISSIE Administration Chlorhexidine Gluconate 15 ml 09/15/20 21:00 09/16/20 11:35 Chlorhexidine Gluconate 15 Ml Udcup SSP 15 ml BID CHRISSIE Administration Fentanyl 50 mcg 09/14/20 21:00 09/14/20 20:05 Fentanyl 50 Mcg/Hour Patch TD 50 mcg Q3DAYS@2100 CHRISSIE Administration Folic Acid 1 mg 09/12/20 09:00 09/16/20 10:06 Folic Acid 1 Mg Tab PO 1 mg DAILY CHRISSIE Administration Gabapentin 100 mg 09/15/20 21:00 09/15/20 21:23 Gabapentin 100 Mg Cap PO 100 mg HS CHRISSIE Administration Hydromorphone HCl 2 mg 09/14/20 14:00 09/16/20 15:44 Hydromorphone 2 Mg Tab PO 2 mg Q4H CHRISSIE Administration Cefepime HCl 2 gm/ Sodium 100 mls @ 200 mls/hr 09/11/20 23:00 09/16/20 14:12 Chloride IVPB 100 mls 1100,2300 CHRISSIE Administration Vancomycin HCl 1.25 gm/ Device 250 mls @ 166.667 mls/hr 09/13/20 22:00 09/16/20 15:46 IVPB 250 mls 0600,1400,2200 CHRISSIE Administration Metoclopramide HCl 10 mg 09/12/20 08:00 09/16/20 12:00 Metoclopramide Hcl 10 Mg Tab PO Not Given TID-WM CHRISSIE Metoprolol Tartrate 25 mg 09/12/20 09:00 09/16/20 10:05 Metoprolol Tartrate 25 Mg Tab PO Not Given BID CHRISSIE Ondansetron HCl 4 mg 09/11/20 12:16 09/12/20 06:23 Ondansetron Pf 4 Mg/2 Ml Vial IVP 4 mg Q6H PRN Administration Nausea/Vomiting Pantoprazole Sodium 40 mg 09/15/20 21:00 09/16/20 10:03 Pantoprazole 40 Mg Tab PO 40 mg BID CHRISSIE Administration Polyethylene Glycol 17 gm 09/12/20 07:14 09/15/20 09:03 Polyethylene Glycol 3350 17 Gm Packet PO 17 gm DAILYPRN PRN Administration Constipation Promethazine HCl 25 mg 09/14/20 21:00 09/15/20 21:24 Promethazine 25 Mg Tab PO 25 mg HS CHRISSIE Administration Senna 3 tab 09/12/20 09:00 09/16/20 10:04 Senokot 8.6 Mg Tab PO 3 tab DAILY CHRISSIE Administration Hospitalist Exam Vitals: Vital Signs (12 hours) Temp Pulse Resp BP BP Pulse Ox 09/16/20 15:47 98.8 F 109 H 20 110/61 95 09/16/20 14:12 92 13 95 09/16/20 11:57 98 F 101 H 18 105/59 L 95 09/16/20 10:17 94 L 09/16/20 10:11 108 H 101/58 L 87 L 09/16/20 09:31 88 L 09/16/20 09:29 104 H 52 H 88 L 09/16/20 08:00 98.2 F 104 H 20 113/64 96 Weight Admit Weight 207 lb 11.2 oz Weight 207 lb 11.2 oz General Appearance: NAD, awake alert Eye: PERRL, anicteric sclera Heart: RRR, no murmur, no gallops, no rubs, normal peripheral pulses Respiratory: rales (at the right base) Gastrointestinal: soft, non-tender, non-distended, normal bowel sounds, no palpable masses, no hepatomegaly Extremities: no cyanosis, no edema Hosp A/P (1) Pneumonia Code(s): J18.9 - PNEUMONIA, UNSPECIFIED ORGANISM Status: Acute Qualifiers: Pneumonia type: due to Pneumococcus Laterality: right Lung location: lower lobe of lung Qualified Code(s): J13 - Pneumonia due to Streptococcus pneumoniae (2) HLD (hyperlipidemia) Code(s): E78.5 - HYPERLIPIDEMIA, UNSPECIFIED Status: Chronic Qualifiers: Hyperlipidemia type: unspecified Qualified Code(s): E78.5 - Hyperlipidemia, unspecified (3) HTN (hypertension) Code(s): I10 - ESSENTIAL (PRIMARY) HYPERTENSION Status: Chronic Qualifiers: Hypertension type: essential hypertension Qualified Code(s): I10 - Essential (primary) hypertension (4) Stage 4 lung cancer Code(s): C34.90 - MALIGNANT NEOPLASM OF UNSP PART OF UNSP BRONCHUS OR LUNG Status: Chronic Qualifiers: Laterality: right Qualified Code(s): C34.91 - Malignant neoplasm of unspecified part of right bronchus or lung (5) Chronic pain due to neoplasm Code(s): G89.3 - NEOPLASM RELATED PAIN (ACUTE) (CHRONIC) Status: Acute (6) Venous thromboembolism Code(s): I82.90 - ACUTE EMBOLISM AND THROMBOSIS OF UNSPECIFIED VEIN Status: Acute (7) Anticoagulant long-term use Code(s): Z79.01 - [facility] (CURRENT) USE OF ANTICOAGULANTS Status: Chronic - Plan * Pneumonia in immuno-compromised patient- continue Cefepime and Vancomycin- an tibiotics can likely be de-escalated tomorrow * HTN- blood pressure is stable * Stage 4 lung cancer * Chronic cancer pain- pain was better controlled overnight- will continue Gabapentin * History of VTE- continue Eliquis * Hypokalemia and Hypomagnesemia- replace * Hopefully home tomorrow
[2020-09-16] MEDS: Gabapentin 100 MG CAP PO SCH (20:15)
[2020-09-16] MEDS: Promethazine 25 MG TAB PO SCH (20:15)
[2020-09-17] MEDS: HYDROmorphone 2 MG TAB PO SCH ×5 (01:52→17:19)
[2020-09-17 04:49] LABS: Anion Gap 12 mmol/L (10-20); BUN (Urea Nitrogen) 6 mg/dL (8.4-25.7); Calc. Creatinine Clearance 170 mL/min (70-130); Carbon Dioxide 25 mmol/L (23-31); Chloride 104 mmol/L (98-107); Glucose 121 mg/dL (80-115); Magnesium 1.8 mg/dL (1.6-2.6); Potassium 3.8 mmol/L (3.5-5.1); Sodium 137 mmol/L (136-145)
[2020-09-17] MEDS: VANCOMYCIN 1.25 GM/250 ML BAG 1.25 GM in Premix Bag 1 BAG IVPB SCH ×3 (05:36→21:51)
--- NOTE | 2020-09-17 08:53 | PDOC.HOSPP ---
- Subjective Encounter Date: 09/17/20 Encounter Time: 08:50 Subjective: Mr. Key was seen today in follow-up of pneumonia. He does not have any new complaints. He rested well last night. - Objective Vital Signs & Weight: Vital Signs (12 hours) Temp Pulse Resp BP Pulse Ox 09/17/20 07:44 102 H 16 90 L 09/17/20 07:23 99.3 F 106 H 20 116/62 90 L 09/17/20 00:28 106 H 16 90 L 09/16/20 23:34 110 H Weight Admit Weight 207 lb 11.2 oz Weight 207 lb 11.2 oz I&O: 09/16/20 09/17/20 09/18/20 06:59 06:59 06:59 Intake Total 1980 1250 Output Total 300 1775 Balance 1680 -525 Result Diagrams: 09/16/20 04:18 09/17/20 04:17 Hospitalist ROS - Medication Medications: Active Medications Generic Name Dose Route Start Last Admin Trade Name Freq PRN Reason Stop Dose Admin Hydrocodone Bitart/Acetaminophen 2 tab 09/11/20 12:16 09/15/20 03:41 Hydrocodone/Acetaminophen 5/325 Mg Tablet PO 2 tab Q4H PRN Administration Severe Pain (7-10) Albuterol/Ipratropium 3 ml 09/11/20 13:00 09/17/20 07:44 Ipratropium/Albuterol Sulfate 3 Ml Neb NEB 3 ml [id number] CHRISSIE Administration Amlodipine Besylate 5 mg 09/12/20 09:00 09/16/20 10:06 Amlodipine 5 Mg Tab PO Not Given DAILY CHRISSIE Apixaban 5 mg 09/12/20 09:00 09/16/20 20:14 Apixaban 5 Mg Tab PO 5 mg BID CHRISSIE Administration Chlorhexidine Gluconate 15 ml 09/15/20 21:00 09/16/20 20:18 Chlorhexidine Gluconate 15 Ml Udcup SSP Not Given BID CHRISSIE Fentanyl 50 mcg 09/14/20 21:00 09/14/20 20:05 Fentanyl 50 Mcg/Hour Patch TD 50 mcg Q3DAYS@2100 CHRISSIE Administration Folic Acid 1 mg 09/12/20 09:00 09/16/20 10:06 Folic Acid 1 Mg Tab PO 1 mg DAILY CHRISSIE Administration Gabapentin 100 mg 09/15/20 21:00 09/16/20 20:15 Gabapentin 100 Mg Cap PO 100 mg HS CHRISSIE Administration Hydromorphone HCl 2 mg 09/14/20 14:00 09/17/20 05:36 Hydromorphone 2 Mg Tab PO 2 mg Q4H CHRISSIE Administration Cefepime HCl 2 gm/ Sodium 100 mls @ 200 mls/hr 09/11/20 23:00 09/16/20 23:30 Chloride IVPB 100 mls 1100,2300 CHRISSIE Administration Vancomycin HCl 1.25 gm/ Device 250 mls @ 166.667 mls/hr 09/13/20 22:00 09/17/20 05:36 IVPB 250 mls 0600,1400,2200 CHRISSIE Administration Metoclopramide HCl 10 mg 09/12/20 08:00 09/16/20 17:28 Metoclopramide Hcl 10 Mg Tab PO 10 mg TID-WM CHRISSIE Administration Metoprolol Tartrate 25 mg 09/12/20 09:00 09/16/20 20:16 Metoprolol Tartrate 25 Mg Tab PO 25 mg BID CHRISSIE Administration Ondansetron HCl 4 mg 09/11/20 12:16 09/12/20 06:23 Ondansetron Pf 4 Mg/2 Ml Vial IVP 4 mg Q6H PRN Administration Nausea/Vomiting Pantoprazole Sodium 40 mg 09/15/20 21:00 09/16/20 20:15 Pantoprazole 40 Mg Tab PO 40 mg BID CHRISSIE Administration Polyethylene Glycol 17 gm 09/12/20 07:14 09/15/20 09:03 Polyethylene Glycol 3350 17 Gm Packet PO 17 gm DAILYPRN PRN Administration Constipation Promethazine HCl 25 mg 09/14/20 21:00 09/16/20 20:15 Promethazine 25 Mg Tab PO 25 mg HS CHRISSIE Administration Senna 3 tab 09/12/20 09:00 09/16/20 10:04 Senokot 8.6 Mg Tab PO 3 tab DAILY CHRISSIE Administration Sodium Chloride 10 ml 09/16/20 21:00 09/16/20 20:16 Flush - Normal Saline 10 Ml Syringe IVF 10 ml Q12HR CHRISSIE Administration Hospitalist Exam Vitals: Vital Signs (12 hours) Temp Pulse Resp BP Pulse Ox 09/17/20 07:44 102 H 16 90 L 09/17/20 07:23 99.3 F 106 H 20 116/62 90 L 09/17/20 00:28 106 H 16 90 L 09/16/20 23:34 110 H Weight Admit Weight 207 lb 11.2 oz Weight 207 lb 11.2 oz Eye: PERRL, anicteric sclera Heart: RRR, no murmur, no gallops, no rubs, normal peripheral pulses Respiratory: rales (at the right base) Gastrointestinal: soft, non-tender, non-distended, normal bowel sounds, no palpable masses, no hepatomegaly Extremities: no cyanosis, no edema Hosp A/P (1) Pneumonia Code(s): J18.9 - PNEUMONIA, UNSPECIFIED ORGANISM Status: Acute Qualifiers: Pneumonia type: due to Pneumococcus Laterality: right Lung location: lower lobe of lung Qualified Code(s): J13 - Pneumonia due to Streptococcus pneumoniae (2) HLD (hyperlipidemia) Code(s): E78.5 - HYPERLIPIDEMIA, UNSPECIFIED Status: Chronic Qualifiers: Hyperlipidemia type: unspecified Qualified Code(s): E78.5 - Hyperlipidemia, unspecified (3) HTN (hypertension) Code(s): I10 - ESSENTIAL (PRIMARY) HYPERTENSION Status: Chronic Qualifiers: Hypertension type: essential hypertension Qualified Code(s): I10 - Essential (primary) hypertension (4) Stage 4 lung cancer Code(s): C34.90 - MALIGNANT NEOPLASM OF UNSP PART OF UNSP BRONCHUS OR LUNG Status: Chronic Qualifiers: Laterality: right Qualified Code(s): C34.91 - Malignant neoplasm of unspecified part of right bronchus or lung (5) Chronic pain due to neoplasm Code(s): G89.3 - NEOPLASM RELATED PAIN (ACUTE) (CHRONIC) Status: Acute (6) Venous thromboembolism Code(s): I82.90 - ACUTE EMBOLISM AND THROMBOSIS OF UNSPECIFIED VEIN Status: Acute (7) Anticoagulant long-term use Code(s): Z79.01 - [employer] (CURRENT) USE OF ANTICOAGULANTS Status: Chronic - Plan * Pneumonia in immuno-compromised patient- will consider changing antibiotic to Levaquin orally for discharge * HTN- blood pressure is stable * Stage 4 lung cancer * Chronic cancer pain- pain was better controlled overnight- will continue Gabapentin * History of VTE- continue Eliquis * Hypokalemia and Hypomagnesemia- corrected * Home today
[2020-09-17] MEDS: Metoclopramide HCl 10 MG TAB PO SCH ×3 (09:17→17:19)
[2020-09-17] MEDS: Metoprolol Tartrate 25 MG TAB PO SCH ×2 (09:19→21:43)
[2020-09-17] MEDS: Folic Acid 1 MG TAB PO SCH (09:19)
[2020-09-17] MEDS: Apixaban 5 MG TAB PO SCH ×2 (09:19→21:43)
[2020-09-17] MEDS: Senokot 8.6 MG TAB PO SCH (09:19)
[2020-09-17] MEDS: Amlodipine 5 MG TAB PO SCH (09:19)
[2020-09-17] MEDS: Chlorhexidine Gluconate 15 ML UDCUP SSP SCH ×2 (09:20→21:50)
[2020-09-17] MEDS: Cefepime 2 GM in Sodium Chloride 0.9% 100 ML IVPB SCH ×2 (11:31→23:18)
[2020-09-17] MEDS ORDERED: Iopamidol-370 76% 500 ML 1 ML ONE (12:12)
[2020-09-17 13:52] LABS: Vancomycin, Trough 8.8 ug/mL
[2020-09-17] MEDS: HYDROcodone/Acetaminophen 5/325 mg Tablet PO PRN (14:42)
[2020-09-17] MEDS: Ketorolac Tromethamine 30 MG/ML VIAL IVP PRN (17:25)
[2020-09-17] MEDS ORDERED: Morphine 4 MG/ML VIAL SLOW IVP PRN (18:14)
--- NOTE | 2020-09-17 18:43 | PDOC.BPN ---
- Brief Progress Note Encounter Date: 09/17/20 Encounter Time: 18:41 Patient notes increased chest pain starting around 2:30pm. He says it is not relieved with the current regimen. Will check a CT scan of the chest abdomen and pelvis. I have spoken with the Anesthesiologist, who will also come to assess the patient with regards to pain control.
--- NOTE | 2020-09-17 19:35 | CT ---
EXAM: CT chest, abdomen, and pelvis with IV contrast: HISTORY: Severe chest and epigastric abdominal pain. History of lung cancer. COMPARISON: CTA thorax on 08/11/2021 FINDINGS: CT THORAX: Lungs: There are peripherally located interstitial densities seen throughout the lungs bilaterally wh ich may be related to chronic interstitial lung changes. Areas of consolidation right lower lobe are again seen which could be related to pneumonia or aspiration pneumonitis. Neoplastic process jeremi ot be entirely excluded. The large airways do appear patent. Pleura: Trace left pleural effusion is present with small amount of fluid in the superior aspect of t he right major fissure. Lymph nodes: Again noted are enlarged mediastinal lymph nodes including enlarged infraclavicular lymp h nodes. Largest superior left paramediastinal lymph node/infraclavicular lymph node measures 1.6 cm in short axis dimension. Largest prevascular space lymph node measures 2 cm in short axis dimensio n. Overall increase in mediastinal lymph nodes is present. There is also soft tissue density in each hilar region also suggesting lymphadenopathy. Prominent lymph nodes which are increased in numbe r in the left axilla are seen which is asymmetric compared to the contralateral right side. This is also a stable finding. Mediastinum: Vascular calcifications in the coronary arteries. Thoracic aorta is normal in caliber wi thout evidence of an aortic dissection. Chest wall: No abnormalities CT ABDOMEN AND PELVIS: Liver: Within normal limits. Gallbladder: Distended measuring 11 cm in length. There is suggestion of subtle pericholecystic infla mmatory changes. Findings could be related to cholecystitis in the correct clinical scenario.\ Pancreas: Within normal limits. Spleen: Within normal limits. Adrenal glands: Within normal limits. Kidneys: Within normal limits. Urinary Bladder: The urinary bladder is unremarkable. Reproductive organs: Prostate calcifications are present. Bowel: Evidence of colonic diverticulosis. Loops of small bowel are normal in caliber. Adenopathy:No enlarged lymph nodes are seen in the abdomen or pelvis by CT size criteria. Peritoneum: No free fluid or fluid collection is seen. No free intraperitoneal gas is identified. Abdominal wall: Postoperative changes right inguinal region are seen. Postoperative changes each scro karmen are seen which may related to prior vasectomy. Osseous structures: Multifocal lytic and sclerotic osseous metastatic lesions involving the spine, pe lvis, and bilateral ribs. Vessels: Vascular calcifications present in the abdominal aorta and iliac arteries as well as splenic artery. Low attenuation areas are seen in each superficial femoral and common femoral veins where imaged. This may be attributable to mixing of contrast and unopacified blood. Thrombus in either femo ral vein could not be excluded based on this exam. IMPRESSION: 1. Distention of the gallbladder with suggestion of subtle pericholecystic inflammatory stranding. Fi ndings could be related to cholecystitis in the correct clinical scenario. 2. Persistent consolidation right lower lobe which could be related to pneumonia or aspiration pneumo nitis. Neoplastic process would be difficult to entirely exclude. 3. Persistent peripherally located interstitial opacities which could be related to chronic interstit ial fibrotic lung changes. 4. Trace bilateral pleural effusions. 5. Mediastinal, hilar, and left axillary lymphadenopathy also seen on prior exam. 6. Diffuse osseous metastatic disease.
[2020-09-17] MEDS: HYDROmorphone 10 mg/100 ml CADD IVPB PRN (21:40)
[2020-09-17] MEDS: Gabapentin 100 MG CAP PO SCH (21:43)
[2020-09-17] MEDS: Promethazine 25 MG TAB PO SCH (21:43)
[2020-09-17] MEDS: fentaNYL 50 mcg/hour Patch TD SCH (21:44)
[2020-09-18] MEDS: VANCOMYCIN 1.25 GM/250 ML BAG 1.25 GM in Premix Bag 1 BAG IVPB SCH ×3 (05:55→20:34)
[2020-09-18] MEDS: Metoclopramide HCl 10 MG TAB PO SCH ×3 (10:02→16:53)
[2020-09-18] MEDS: Senokot 8.6 MG TAB PO SCH (10:02)
[2020-09-18] MEDS: Amlodipine 5 MG TAB PO SCH (10:02)
[2020-09-18] MEDS: Apixaban 5 MG TAB PO SCH ×2 (10:02→20:34)
[2020-09-18] MEDS: Chlorhexidine Gluconate 15 ML UDCUP SSP SCH ×2 (10:03→20:35)
[2020-09-18] MEDS: Folic Acid 1 MG TAB PO SCH (10:03)
[2020-09-18] MEDS: Metoprolol Tartrate 25 MG TAB PO SCH ×2 (10:04→20:34)
[2020-09-18] MEDS: Cefepime 2 GM in Sodium Chloride 0.9% 100 ML IVPB SCH ×2 (11:59→22:54)
--- NOTE | 2020-09-18 15:36 | PDOC.HOSPP ---
- Subjective Encounter Date: 09/18/20 Encounter Time: 15:34 Subjective: Mr. Key was seen today in follow-up of chest pain and epigastric pain. He denies any nausea or vomiting. He says the pain does not seem to be in relationship to anything. - Objective Vital Signs & Weight: Vital Signs (12 hours) Temp Pulse Resp BP BP BP Pulse Ox 09/18/20 12:26 92 L 09/18/20 12:24 88 16 92 L 09/18/20 12:00 98.1 F 90 18 141/61 H 18 L 09/18/20 10:02 102 H 129/59 L 09/18/20 08:00 98.2 F 102 H 18 129/59 L 94 L 09/18/20 07:20 99 16 95 09/18/20 04:00 98.1 F 103 H 16 128/69 93 L Weight Admit Weight 207 lb 11.2 oz Weight 207 lb 11.2 oz I&O: 09/17/20 09/18/20 09/19/20 06:59 06:59 06:59 Intake Total 1250 1700 Output Total 1775 1999 1200 Balance -525 -2000 500 Result Diagrams: 09/16/20 04:18 09/17/20 04:17 Hospitalist ROS - Medication Medications: Active Medications Generic Name Dose Route Start Last Admin Trade Name Freq PRN Reason Stop Dose Admin Albuterol/Ipratropium 3 ml 09/11/20 13:00 09/18/20 12:24 Ipratropium/Albuterol Sulfate 3 Ml Neb NEB 3 ml [id number] CHRISSIE Administration Amlodipine Besylate 5 mg 09/12/20 09:00 09/18/20 10:02 Amlodipine 5 Mg Tab PO 5 mg DAILY CHRISSIE Administration Apixaban 5 mg 09/12/20 09:00 09/18/20 10:02 Apixaban 5 Mg Tab PO 5 mg BID CHRISSIE Administration Chlorhexidine Gluconate 15 ml 09/15/20 21:00 09/18/20 10:03 Chlorhexidine Gluconate 15 Ml Udcup SSP 15 ml BID CHRISSIE Administration Fentanyl 50 mcg 09/14/20 21:00 09/17/20 21:44 Fentanyl 50 Mcg/Hour Patch TD 50 mcg Q3DAYS@2100 CHRISSIE Administration Folic Acid 1 mg 09/12/20 09:00 09/18/20 10:03 Folic Acid 1 Mg Tab PO 1 mg DAILY CHRISSIE Administration Gabapentin 100 mg 09/15/20 21:00 09/17/20 21:43 Gabapentin 100 Mg Cap PO 100 mg HS CHRISSIE Administration Hydromorphone HCl 0 mg 09/17/20 20:00 09/17/20 21:40 Hydromorphone 10 Mg/100 Ml Cadd IVPB 10 mg INF PRN Administration Pain Cefepime HCl 2 gm/ Sodium 100 mls @ 200 mls/hr 09/11/20 23:00 09/18/20 11:59 Chloride IVPB 100 mls 1100,2300 CHRISSIE Administration Vancomycin HCl 1.25 gm/ Device 250 mls @ 166.667 mls/hr 09/13/20 22:00 09/18/20 14:39 IVPB 250 mls 0600,1400,2200 CHRISSIE Administration Ketorolac Tromethamine 15 mg 09/15/20 12:18 09/17/20 17:25 Ketorolac Tromethamine 30 Mg/Ml Vial IVP 09/20/20 12:19 15 mg Q6H PRN Administration Pain Metoclopramide HCl 10 mg 09/12/20 08:00 09/18/20 11:59 Metoclopramide Hcl 10 Mg Tab PO 10 mg TID-WM CHRISSIE Administration Metoprolol Tartrate 25 mg 09/12/20 09:00 09/18/20 10:04 Metoprolol Tartrate 25 Mg Tab PO 25 mg BID CHRISSIE Administration Ondansetron HCl 4 mg 09/11/20 12:16 09/12/20 06:23 Ondansetron Pf 4 Mg/2 Ml Vial IVP 4 mg Q6H PRN Administration Nausea/Vomiting Pantoprazole Sodium 40 mg 09/15/20 21:00 09/18/20 10:02 Pantoprazole 40 Mg Tab PO 40 mg BID CHRISSIE Administration Polyethylene Glycol 17 gm 09/12/20 07:14 09/15/20 09:03 Polyethylene Glycol 3350 17 Gm Packet PO 17 gm DAILYPRN PRN Administration Constipation Promethazine HCl 25 mg 09/14/20 21:00 09/17/20 21:43 Promethazine 25 Mg Tab PO Not Given HS CHRISSIE Senna 3 tab 09/12/20 09:00 09/18/20 10:02 Senokot 8.6 Mg Tab PO 3 tab DAILY CHRISSIE Administration Sodium Chloride 10 ml 09/16/20 21:00 09/18/20 10:05 Flush - Normal Saline 10 Ml Syringe IVF 10 ml Q12HR CHRISSIE Administration Hospitalist Exam Vitals: Vital Signs (12 hours) Temp Pulse Resp BP BP BP Pulse Ox 09/18/20 12:26 92 L 09/18/20 12:24 88 16 92 L 09/18/20 12:00 98.1 F 90 18 141/61 H 18 L 09/18/20 10:02 102 H 129/59 L 09/18/20 08:00 98.2 F 102 H 18 129/59 L 94 L 09/18/20 07:20 99 16 95 09/18/20 04:00 98.1 F 103 H 16 128/69 93 L Weight Admit Weight 207 lb 11.2 oz Weight 207 lb 11.2 oz Eye: PERRL, anicteric sclera Heart: RRR, no murmur, no gallops, no rubs, normal peripheral pulses Respiratory: CTAB, no wheezes, no rales, no ronchi, normal chest expansion Gastrointestinal: soft, non-tender, non-distended, normal bowel sounds, no palpable masses, no hepatomegaly Extremities: no cyanosis, no edema Hosp A/P (1) Pneumonia Code(s): J18.9 - PNEUMONIA, UNSPECIFIED ORGANISM Status: Acute Qualifiers: Pneumonia type: due to Pneumococcus Laterality: right Lung location: lower lobe of lung Qualified Code(s): J13 - Pneumonia due to Streptococcus pneumoniae (2) HLD (hyperlipidemia) Code(s): E78.5 - HYPERLIPIDEMIA, UNSPECIFIED Status: Chronic Qualifiers: Hyperlipidemia type: unspecified Qualified Code(s): E78.5 - Hyperlipidemia, unspecified (3) HTN (hypertension) Code(s): I10 - ESSENTIAL (PRIMARY) HYPERTENSION Status: Chronic Qualifiers: Hypertension type: essential hypertension Qualified Code(s): I10 - Essential (primary) hypertension (4) Stage 4 lung cancer Code(s): C34.90 - MALIGNANT NEOPLASM OF UNSP PART OF UNSP BRONCHUS OR LUNG Status: Chronic Qualifiers: Laterality: right Qualified Code(s): C34.91 - Malignant neoplasm of unspecified part of right bronchus or lung (5) Chronic pain due to neoplasm Code(s): G89.3 - NEOPLASM RELATED PAIN (ACUTE) (CHRONIC) Status: Acute (6) Venous thromboembolism Code(s): I82.90 - ACUTE EMBOLISM AND THROMBOSIS OF UNSPECIFIED VEIN Status: Acute (7) Anticoagulant long-term use Code(s): Z79.01 - SENIOR LIVING (CURRENT) USE OF ANTICOAGULANTS Status: Chronic - Plan * Pneumonia in immuno-compromised patient- continue the current regimen while in the hospital * Chest pain radiating to the back- ? etiology- CT scan of the chest abdomen and pelvis noted- Will check a HIDA scan to further evaluate the gallbladder, and check an MRI of the Lumbar and thoracic spine. Pain is better controlled with the RATE REVIEWER pump * HTN- blood pressure is stable * Stage 4 lung cancer * History of VTE- continue Eliquis * Hypokalemia and Hypomagnesemia- will follow-up with lab work in the AM
[2020-09-18] MEDS: Gabapentin 100 MG CAP PO SCH (20:34)
[2020-09-18] MEDS: Promethazine 25 MG TAB PO SCH (20:36)
[2020-09-19] MEDS: HYDROmorphone 10 mg/100 ml CADD IVPB PRN (02:39)
[2020-09-19 06:49] LABS: Vancomycin, Trough 14.6 ug/mL
[2020-09-19 06:52] LABS: Anion Gap 13 mmol/L (10-20); BUN (Urea Nitrogen) 7 mg/dL (8.4-25.7); Calc. Creatinine Clearance 176 mL/min (70-130); Calcium 8.4 mg/dL (7.8-10.44); Carbon Dioxide 25 mmol/L (23-31); Chloride 101 mmol/L (98-107); Glucose 104 mg/dL (80-115); Magnesium 1.7 mg/dL (1.6-2.6); Potassium 3.6 mmol/L (3.5-5.1); Sodium 135 mmol/L (136-145)
[2020-09-19] MEDS: VANCOMYCIN 1.25 GM/250 ML BAG 1.25 GM in Premix Bag 1 BAG IVPB SCH ×3 (06:55→20:12)
[2020-09-19 07:24] LABS: Hemoglobin 8.7 g/dL (14.0-18.0); Mean Corpuscular HGB CONC 31.5 g/dL (32.0-36.0); Mean Corpuscular Hemoglobin 28.2 pg (27.0-31.0); Mean Corpuscular Volume 89.7 fL (78.0-98.0); Platelet Count 340 thou/uL (130-400); RBC Distribution Width 18.9 % (11.5-14.5); Red Blood Cell (RBC) Count 3.09 mill/uL (4.70-6.10); White Blood Cell (WBC) Count 9.8 thou/uL (4.8-10.8)
[2020-09-19 07:32] LABS: Band 13 % (5-11); Lymphocytes 11 % (21-51); MDiff Complete? YES; Monocytes 9 % (0-10); Neutrophil 65 % (42-75); Platelet Morphology Comment Appears Adequate; Polychromasia MODERATE = 3-4 cells (100X) (0-2/hpf)
--- NOTE | 2020-09-19 09:53 | MRI ---
MRI of thelumbar spine: 09/19/2020 COMPARISON:None available HISTORY:Stage IV lung cancer with osseous metastatic disease, extreme pain TECHNIQUE: Multiplanar multisequence MR imaging of thelumbar spine with and without contrast Findings:There is evidence of widespread osseous metastatic disease. On the precontrast T1 imaging th ere is near complete replacement of the marrow signal with tumor at the T12, L1, and L2 vertebral bodies, which includes the posterior elements at T12 and L1. Similarly, there is extensive marrow inf iltration with T1 hypointense tumor involving portions of the L3, L4, and L5 vertebral bodies. In addition, the incompletely imaged sacrum demonstrates multifocal metastatic disease, right greater th an left. Partially imaged lesions are noted within the iliac bones bilaterally, right greater than left. On the right there appears to be a soft tissue component anterior to the right iliac wing measu ring 1.9 cm. The sagittal STIR imaging demonstrates extensive multifocal increased signal intensity in the areas o f above described widespread osseous metastatic disease. There is anterolisthesis of L5 5 on S1 measuring approximately 8 mm. On the basis of 5 lumbar type vertebral bodies, the conus medullaris terminates at the L1 level. T12-L1: Mild bilateral facet hypertrophy. There is a small central disc protrusion with no central ca nal stenosis. L1-2: There is mild bilateral facet hypertrophy, left greater than right. No significant central da l stenosis is noted. There is mild bilateral neural foraminal stenosis, left greater than right, likely on the basis of tu mor extension from the adjacent vertebral body/pedicles. L2-3: There is disc desiccation with a small central annular tear. There is mild bilateral facet hype rtrophy with no significant central canal or neural foraminal stenosis. L3-4: Mild bilateral facet hypertrophy. There is disc space narrowing and disc desiccation with mild left and moderate/severe right neural foraminal stenosis. No significant central canal stenosis. The neural foraminal stenosis, right greater than left, is likely on the basis of tumor infiltration. There is small volume anterior epidural tumor on the right causing a mild degree of associated central canal stenosis just superior to the axial level of the L3-4 disc space. L4-5: There is disc space narrowing with disc desiccation, mild disc bulge, and mild central canal st enosis. Mild bilateral facet hypertrophy with mild bilateral neural foraminal stenosis. L5-S1: There is disc space narrowing with disc desiccation, a central annular tear, and an associated small central disc protrusion. Mild central canal stenosis. Bilateral facet hypertrophy noted with mild bilateral neural foraminal stenosis. The retroperitoneal structures demonstrate no acute findings. The postcontrast imaging demonstrates extensive enhancement of above described tumor throughout multi ple vertebral bodies. This includes a majority of the T12 vertebral body with slight tumor extension laterally on the left into the paraspinal soft tissues. At L1, there is tumor extension int o the anterior epidural space, right greater than left, as well as into the region of the neural foramina and the paraspinal soft tissues, particularly on the left. Anterior epidural tumor extension at the L1 level measures approximately 4 mm in AP dimension in the right paracentral and left paracentral regions. There are patchy areas of enhancing tumor within the L2 vertebral body. At the L 3 level inferiorly enhancing anterior epidural tumor in the right paracentral region measures in the 4 mm range and enhancing tumor extends into the region of the right neural foramen. Multifocal ar eas of enhancement on the basis of tumor noted within L4 and L5 vertebral bodies. Enhancing tumor noted within bilateral iliac bones and the bilateral sacral ala, left greater than right, and enhance ment of the musculature anterior to the iliac wings, right greater than left, is likely associated with tumor. IMPRESSION:There is widespread osseous metastatic disease with areas of epidural tumor extension and tumor extension into the neural foramina. The anterior epidural tumor is noted at L3 and at L1 with no significant associated central canal stenosis at this time. There are areas of neural foraminal st enosis on the basis of epidural tumor extension, most prominent on the right at L3-4.
[2020-09-19] MEDS: Apixaban 5 MG TAB PO SCH ×2 (10:01→20:13)
[2020-09-19] MEDS: Metoclopramide HCl 10 MG TAB PO SCH ×3 (10:01→17:31)
[2020-09-19] MEDS: Metoprolol Tartrate 25 MG TAB PO SCH ×2 (10:02→20:13)
[2020-09-19] MEDS: Amlodipine 5 MG TAB PO SCH (10:02)
[2020-09-19] MEDS: Ketorolac Tromethamine 30 MG/ML VIAL IVP PRN (10:03)
[2020-09-19] MEDS: Cefepime 2 GM in Sodium Chloride 0.9% 100 ML IVPB SCH ×2 (11:13→23:17)
[2020-09-19] MEDS ORDERED: Magnevist 469MG/ML 20 ML VIAL ONE ×2 (11:52)
[2020-09-19] MEDS ORDERED: Morphine 2 MG/ML VIAL ONE (13:31)
--- NOTE | 2020-09-19 13:31 | MRI ---
MRI THORACIC SPINE WITH AND WITHOUT CONTRAST: INDICATION: Lung cancer with bone metastasis. COMPARISON: Correlation is made to the CT of chest, abdomen, and pelvis 09/17/2020 which imaged the entire thoracic and lumbar spine. That exam showed diffuse osseous metastatic disease with sclerotic and lucent met astatic lesions throughout all visualized thoracic and lumbar vertebrae. The vertebral bodies main n ormal height and alignment. FINDINGS: The MRI thoracic spine shows the same findings as the CT. The vertebral bodies maintain height and a lignment. There are diffuse signal abnormalities throughout all visualized vertebral bodies consiste nt with diffuse osseous metastatic disease involving all visualized thoracic vertebrae. There is no evidence of disk bulge or protrusion. There is no central canal stenosis. Review of the thoracic cord shows a small syrinx in the mid to lower thoracic cord which begins at th e T5 level and extends through the T8 level. No abnormal enhancement within the cord identified. There is posterior element involvement at multiple levels, specifically at T3 there is pedicle involv ement on the right with transverse process involvement. Pedicle involvement on the right at T8, T9, and T10. IMPRESSION: 1. Abnormal signal involving all visualized thoracic vertebrae consistent with diffuse metastatic di sease. No evidence of vertebral body compression. There is no disk protrusion. No central canal st enosis. 2. 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 No intrinsic cord lesion identified. POS: AGW
--- NOTE | 2020-09-19 15:06 | NM ---
Hepatobiliary scan: 09/19/2020 COMPARISON: None HISTORY: Right upper quadrant/epigastric pain TECHNIQUE: Following the intravenous administration of 4.5 mCi of technetium 99m labeled mebrofenin, anterior planar imaging of the abdomen was obtained for 60 minutes. Secondary to nonvisualization of the gallbladder, repeat imaging was obtained over 30 additional minutes following the intravenous administration of 2 mg of morphine intravenously. FINDINGS: There is prompt radiotracer activity within the liver on the post injection imaging. There is biliary activity by 10 minutes and small bowel activity by 20 minutes. 60 minutes into imaging there is nonvisualization of the gallbladder. Additional 30 minutes of imaging following intravenous administration of morphine also does not demonstrate the gallbladder. IMPRESSION: Nonvisualization of the gallbladder over a 90 minute time frame, including 30 minutes sta tus post intravenous morphine administration. Findings are concerning for acute cholecystitis on the basis of cystic duct obstruction. Results relayed to Dr. Roberts via [facility] at 3:00 PM 09/19/2020
[2020-09-19] MEDS: Senokot 8.6 MG TAB PO SCH (15:14)
[2020-09-19] MEDS: Chlorhexidine Gluconate 15 ML UDCUP SSP SCH ×2 (15:14→20:09)
[2020-09-19] MEDS: Folic Acid 1 MG TAB PO SCH (15:14)
[2020-09-19] MEDS ORDERED: fentaNYL 50 mcg/hour Patch TD SCH (17:00)
--- NOTE | 2020-09-19 19:20 | PDOC.HOSPP ---
- Subjective Encounter Date: 09/19/20 Encounter Time: 19:19 Subjective: Mr. Key was seen today in follow-up of chest pain. He does not have any new complaints. His pain is fairly well controlled. - Objective Vital Signs & Weight: Vital Signs (12 hours) Temp Pulse Resp BP BP Pulse Ox 09/19/20 19:09 94 L 09/19/20 19:07 88 20 94 L 09/19/20 16:40 97.7 F 98 16 113/66 93 L 09/19/20 14:24 89 20 95 09/19/20 12:00 97.8 F 95 18 126/75 95 09/19/20 10:05 92 L 09/19/20 10:02 110 H 130/68 09/19/20 08:00 98.1 F 110 H 18 130/68 92 L 09/19/20 07:54 83 18 92 L Weight Admit Weight 207 lb 11.2 oz Weight 207 lb 11.2 oz I&O: 09/18/20 09/19/20 09/20/20 06:59 06:59 06:59 Intake Total 3090 655 Output Total 1999 3800 Balance -1999 -710 655 Result Diagrams: 09/19/20 05:27 09/19/20 05:27 Hospitalist ROS - Medication Medications: Active Medications Generic Name Dose Route Start Last Admin Trade Name Freq PRN Reason Stop Dose Admin Albuterol/Ipratropium 3 ml 09/11/20 13:00 09/19/20 19:07 Ipratropium/Albuterol Sulfate 3 Ml Neb NEB 3 ml [id number] CHRISSIE Administration Amlodipine Besylate 5 mg 09/12/20 09:00 09/19/20 10:02 Amlodipine 5 Mg Tab PO 5 mg DAILY CHRISSIE Administration Apixaban 5 mg 09/12/20 09:00 09/19/20 10:01 Apixaban 5 Mg Tab PO 5 mg BID CHRISSIE Administration Chlorhexidine Gluconate 15 ml 09/15/20 21:00 09/19/20 15:14 Chlorhexidine Gluconate 15 Ml Udcup SSP Not Given BID CHRISSIE Fentanyl 50 mcg 09/19/20 17:00 09/19/20 17:30 Fentanyl 50 Mcg/Hour Patch TD 50 mcg Q3DAYS@1700 CHRISSIE Administration Folic Acid 1 mg 09/12/20 09:00 09/19/20 15:14 Folic Acid 1 Mg Tab PO Not Given DAILY CHRISSIE Gabapentin 100 mg 09/15/20 21:00 09/18/20 20:34 Gabapentin 100 Mg Cap PO 100 mg HS CHRISSIE Administration Hydromorphone HCl 0 mg 09/17/20 20:00 09/19/20 02:39 Hydromorphone 10 Mg/100 Ml Cadd IVPB 10 mg INF PRN Administration Pain Cefepime HCl 2 gm/ Sodium 100 mls @ 200 mls/hr 09/11/20 23:00 09/19/20 11:13 Chloride IVPB 100 mls 1100,2300 CHRISSIE Administration Vancomycin HCl 1.25 gm/ Device 250 mls @ 166.667 mls/hr 09/13/20 22:00 09/19/20 15:18 IVPB 250 mls 0600,1400,2200 CHRISSIE Administration Ketorolac Tromethamine 15 mg 09/15/20 12:18 09/19/20 10:03 Ketorolac Tromethamine 30 Mg/Ml Vial IVP 09/20/20 12:19 15 mg Q6H PRN Administration Pain Metoclopramide HCl 10 mg 09/12/20 08:00 09/19/20 17:31 Metoclopramide Hcl 10 Mg Tab PO 10 mg TID-WM CHRISSIE Administration Metoprolol Tartrate 25 mg 09/12/20 09:00 09/19/20 10:02 Metoprolol Tartrate 25 Mg Tab PO 25 mg BID CHRISSIE Administration Ondansetron HCl 4 mg 09/11/20 12:16 09/12/20 06:23 Ondansetron Pf 4 Mg/2 Ml Vial IVP 4 mg Q6H PRN Administration Nausea/Vomiting Pantoprazole Sodium 40 mg 09/15/20 21:00 09/19/20 10:02 Pantoprazole 40 Mg Tab PO 40 mg BID CHRISSIE Administration Polyethylene Glycol 17 gm 09/12/20 07:14 09/15/20 09:03 Polyethylene Glycol 3350 17 Gm Packet PO 17 gm DAILYPRN PRN Administration Constipation Promethazine HCl 25 mg 09/14/20 21:00 09/18/20 20:36 Promethazine 25 Mg Tab PO Not Given HS CHRISSIE Senna 3 tab 09/12/20 09:00 09/19/20 15:14 Senokot 8.6 Mg Tab PO Not Given DAILY CHRISSIE Sodium Chloride 10 ml 09/16/20 21:00 09/19/20 10:01 Flush - Normal Saline 10 Ml Syringe IVF 10 ml Q12HR [facility] Administration Hospitalist Exam Vitals: Vital Signs (12 hours) Temp Pulse Resp BP BP Pulse Ox 09/19/20 19:09 94 L 09/19/20 19:07 88 20 94 L 09/19/20 16:40 97.7 F 98 16 113/66 93 L 09/19/20 14:24 89 20 95 09/19/20 12:00 97.8 F 95 18 126/75 95 09/19/20 10:05 92 L 09/19/20 10:02 110 H 130/68 09/19/20 08:00 98.1 F 110 H 18 130/68 92 L 09/19/20 07:54 83 18 92 L Weight Admit Weight 207 lb 11.2 oz Weight 207 lb 11.2 oz General Appearance: NAD, awake alert Eye: PERRL, anicteric sclera Heart: RRR, no murmur, no gallops, no rubs, normal peripheral pulses Respiratory: CTAB, no wheezes Gastrointestinal: soft, non-tender, non-distended, normal bowel sounds, no palpable masses, no hepatomegaly Extremities: no cyanosis (plpable pulses), 1+ LE edema Neurological: cranial nerve grossly intact, no weakness (no lower extremity weakness), no focal deficits Hosp A/P (1) Pneumonia Code(s): J18.9 - PNEUMONIA, UNSPECIFIED ORGANISM Status: Acute Qualifiers: Pneumonia type: due to Pneumococcus Laterality: right Lung location: lower lobe of lung Qualified Code(s): J13 - Pneumonia due to Streptococcus pneumoniae (2) HLD (hyperlipidemia) Code(s): E78.5 - HYPERLIPIDEMIA, UNSPECIFIED Status: Chronic Qualifiers: Hyperlipidemia type: unspecified Qualified Code(s): E78.5 - Hyperlipidemia, unspecified (3) HTN (hypertension) Code(s): I10 - ESSENTIAL (PRIMARY) HYPERTENSION Status: Chronic Qualifiers: Hypertension type: essential hypertension Qualified Code(s): I10 - Essential (primary) hypertension (4) Stage 4 lung cancer Code(s): C34.90 - MALIGNANT NEOPLASM OF UNSP PART OF UNSP BRONCHUS OR LUNG Status: Chronic Qualifiers: Laterality: right Qualified Code(s): C34.91 - Malignant neoplasm of unspecified part of right bronchus or lung (5) Chronic pain due to neoplasm Code(s): G89.3 - NEOPLASM RELATED PAIN (ACUTE) (CHRONIC) Status: Acute (6) Venous thromboembolism Code(s): I82.90 - ACUTE EMBOLISM AND THROMBOSIS OF UNSPECIFIED VEIN Status: Acute (7) Anticoagulant long-term use Code(s): Z79.01 - DETENTION (CURRENT) USE OF ANTICOAGULANTS Status: Chronic (8) Acalculous cholecystitis Code(s): K81.9 - CHOLECYSTITIS, UNSPECIFIED Status: Acute (9) Metastatic cancer to spine Code(s): C79.51 - SECONDARY MALIGNANT NEOPLASM OF BONE Status: Acute - Plan * Pneumonia in immuno-compromised patient- continue the current regimen while in the hospital * Chest pain radiating to the back- MRI results noted as well as HIDA scan results * Metastatic Spinal disease- He has progressive metastatic disease to the spine, especially at the T12, and L1 level- Neurosurgery was consulted- and due to the extensive nature of the disease, and previous radiation treatment, he is not likely a candidate for intervention * HIDA scan was suspicious for acalculous cholecystitis- General surgery was consulted- discussed- He will speak with his Oncologist as to the best option to proceed- ( Cholecystostomy tube, vs lap raymond ) * HTN- blood pressure is stable * Stage 4 lung cancer * History of VTE- continue Eliquis * Hypokalemia - continue to monitor
[2020-09-19] MEDS: Promethazine 25 MG TAB PO SCH (20:09)
[2020-09-19] MEDS: Gabapentin 100 MG CAP PO SCH (20:13)
--- NOTE | 2020-09-19 23:40 | CON ---
DATE OF CONSULTATION: 09/19/2020 HISTORY: Mr. Key is a 64-year-old gentleman who tells me on the 11 of September, he was experiencing chest pain with difficulty catching his breath. He tells me his symptoms started on September 06. He was diagnosed with a stage IV lung cancer on April 2020 with mets to the spine. Currently treated by Dr. Bullock, [facility] in [place]. He continues to have chemotherapy treatment. His Last dose chemo was September 02 and last dose of radiation September 04, 2020. Imaging revealed a right lower lobe pneumonia and a distention of the gallbladder. MRI of the T-spine and L-spine was done indicating many mets to the spine. The patient denies any weakness, unstable gait, bladder or bowel dysfunction. REVIEW OF SYSTEMS: Negative unless indicated in the above HPI. PAST MEDICAL HISTORY: Hyperlipidemia; hypertension; stage IV lung cancer, on chemo, last dose September 02; mets to the spine, radiation, last dose September 04, 2020. PAST SURGICAL HISTORY: Appendectomy, hernia repair, tonsillectomy. SOCIAL HISTORY: Denies alcohol or illicit drug use. The patient is a nonsmoker. CURRENT MEDICATIONS: 1. Fentanyl patch 50 mcg/hour. 2. Metoclopramide 10 mg. 3. Promethazine 25 mg. 4. Amlodipine 5 mg. 5. Metoprolol 25 mg. 6. Omeprazole 40 mg. 7. Zyrtec 10 mg. 8. Folic acid 1 mg. 9. Ondansetron 8 mg. 10. Hydromorphone 2 mg. 11. Senna 8.6 mg. 12. Eliquis 5 mg. 13. Tylenol 325 mg. 14. Narcan nasal 4 mg nasally. 15. MiraLAX 17 g/dose. 16. Cefdinir 300 mg. 17. Magnesium citrate. 18. Ciprofloxacin 500 mg/5 mL. 19. Cefuroxime 500 mg. ALLERGIES: CODEINE, PENICILLINS. VITAL SIGNS: BP 123/98, pulse 90, temperature 97.5. PHYSICAL EXAMINATION: HEENT: Pupils are equal. Extraocular movements are intact. NECK: Soft, supple. No masses are noted. Range of motion is intact and nonpainful. NEUROLOGICAL: Awake, alert, and oriented x3. Memory, attention, fund of knowledge is normal. Cranial nerves are grossly intact. EXTREMITIES: Free active range of motion in all extremities. No focal motor weakness. No reflex asymmetry. GCS 15. IMAGING DATA: As stated in the above HPI. ASSESSMENT: 1. Right lower lobe pneumonia. 2. Distention of the gallbladder. 3. Stage IV lung cancer. 4. Mets to the spine. PLAN: Stage IV lung cancer and mets to the spine, treated with chemo and radiation. Last dose chemo was September 02, last dose of radiation September 04, 2020. There is no neurosurgical intervention recommended at this time. Recommend palliative care with chemo and [facility] as needed [facility] Job ID: [id number] [facility]
--- NOTE | 2020-09-20 00:19 | CON ---
DATE OF CONSULTATION: 09/19/2020 REQUESTING PHYSICIAN: Guanaco Roberts MD HISTORY OF PRESENT ILLNESS: Mr. Key is a 64-year-old man, recently diagnosed with stage IV non-small cell lung cancer for which he underwent radiation therapy followed by chemotherapy. He was recently started on Taxotere on 09/04/[address] scan, which showed a progression of his disease. The patient reports having febrile illness recently and had been treated for what is presumed to be pneumonia. He reports insidious onset epigastric abdominal pain, which started on the afternoon of 09/10/2020 following lunch, which consisted of fried chicken strips. He is currently on bowel rest and denies any abdominal pain at this time. Denies any nausea or vomiting. Denies any abdominal bloating, but has taken some stool softeners about a week ago for constipation. PAST MEDICAL HISTORY: Significant for recently diagnosed stage IV non-small cell lung cancer. Other pertinent past medical history includes venous thromboembolism and essential hypertension. PAST SURGICAL HISTORY: Pertinent for childhood tonsillectomy and adenoidectomy. 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 FAMILY HISTORY: Noncontributory for this patient's age. SOCIAL HISTORY: He is , lives at home with his . He denies any cigarette smoking, ethanol, or illicit drug abuse. PREHOSPITALIZATION MEDICATIONS: Includes; 1. Zyrtec 10 mg p.o. daily. 2. Amlodipine 5 mg p.o. daily. 3. Apixaban 5 mg p.o. b.i.d. 4. Fentanyl patch 50 mcg. 5. Omeprazole 40 mg p.o. daily. 6. Metoprolol 25 mg p.o. b.i.d. ALLERGIES: TO CODEINE, LISINOPRIL, AND PENICILLIN. REVIEW OF SYSTEMS: 10-point review of systems essentially unremarkable except as stated in Past Medical History and Chief Complaint. PHYSICAL EXAMINATION: GENERAL: This reveals a 64-year-old normally developed man who is otherwise coherent, interactive, and appears stated age. The patient is alert and oriented x3, appears to be in no acute distress at the time of my evaluation. VITAL SIGNS: Today include blood pressure 126/75, pulse 95, respiratory rate is 18, temperature is 97.8 degrees Fahrenheit, oxygen saturation is 95% on room air. HEENT: Pupils equal, round, reactive to light and accommodation. He has no scleral icterus present. HEART: Reveals regular rate and rhythm. No murmurs or gallops auscultated. LUNGS: Reveals scattered rhonchi with few expiratory wheezes. Otherwise, breathing regular and nonlabored. ABDOMEN: Soft, nontender, nondistended. Liver and spleen nonpalpable below costal margin. NEUROLOGIC: Reveals no focal deficits present. LABORATORY FINDINGS: Today include a CBC with 9800 white blood cells, hemoglobin and hematocrit 8.7 and 27.7 respectively, platelet count is 240,000. Differential counts as follows; 65 segmented neutrophils, 13 bands, 11 lymphocytes, 9 monocytes, and 2 basophils. Metabolic profile; sodium 135, potassium 3.6, chloride is 101, bicarb is 25, BUN is 7, creatinine 0.58, glucose is 104, magnesium is 1.7. I have personally reviewed the CT scan of the abdomen and pelvis, which was obtained on 09/17/2020. This revealed distended gallbladder with scant pericholecystic fluid. CT scan of the chest reveals residual right lower lobe pneumonia. HIDA scan which was obtained yesterday reveals a nonvisualized gallbladder at 19 minutes despite administration of morphine. This is highly suggestive of cystic ductal obstruction consistent with acute acalculous cholecystitis. IMPRESSIONS: 1. Acute acalculous cholecystitis, clinically improving. 2. History of venous thromboembolism. 3. Recent right lower lobe pneumonia. 4. History of stage IV Non-small cell lung cancer. RECOMMENDATIONS: Given the patient is currently asymptomatic, I presented the patient with 3 options. The first being conservative management including bland diet if he remains asymptomatic. The second option is percutaneous cholecystostomy tube placement by Radiology. Third option is laparoscopic cholecystectomy. I have informed the patient of the above findings and options. I did inform the patient of the potential risks and benefits of laparoscopic cholecystectomy to include but not limited to bleeding, infection, injury to bile duct or surrounding structures. I also informed him that although a percutaneous cholecystostomy tube placement is now without risk, it is a less invasive procedure than laparoscopic cholecystectomy and we will also permit him to continue an uninterrupted treatment for his cancer. The patient and his will discuss the above with the oncologist and decide on which option to pursue. I have answered all their questions. Thank you again, Dr. Roberts for allowing me the opportunity to participate in the care of this patient. Job ID: [id number] [facility]arl
[2020-09-20] MEDS: HYDROmorphone 10 mg/100 ml CADD IVPB PRN (02:18)
[2020-09-20 05:11] LABS: #Lymphocytes 0.7 thou/uL (1.20-3.40); #Monocytes 1.1 thou/uL (0.11-0.59); #Neutrophils 7.7 thou/uL (1.40-6.50); %Basophils 0.1 % (0.0-1.0); %Eosinophils 0.4 % (0.0-10.0); %Lymphocytes 7.6 % (21.0-51.0); %Monocytes 11.4 % (0.0-10.0); %Neutrophils 80.6 % (42.0-75.0); Mean Corpuscular HGB CONC 30.7 g/dL (32.0-36.0); Mean Corpuscular Hemoglobin 27.6 pg (27.0-31.0); Mean Corpuscular Volume 89.9 fL (78.0-98.0); Mean Platelet Volume 6.7 fL (7.4-10.4); Platelet Count 298 thou/uL (130-400); RBC Distribution Width 18.9 % (11.5-14.5); Red Blood Cell (RBC) Count 2.91 mill/uL (4.70-6.10); White Blood Cell (WBC) Count 9.5 thou/uL (4.8-10.8)
[2020-09-20] MEDS: VANCOMYCIN 1.25 GM/250 ML BAG 1.25 GM in Premix Bag 1 BAG IVPB SCH ×3 (05:18→21:05)
[2020-09-20 05:32] LABS: Anion Gap 12 mmol/L (10-20); BUN (Urea Nitrogen) 6 mg/dL (8.4-25.7); Calc. Creatinine Clearance 167 mL/min (70-130); Calcium 8.2 mg/dL (7.8-10.44); Carbon Dioxide 25 mmol/L (23-31); Chloride 102 mmol/L (98-107); Glucose 100 mg/dL (80-115); Potassium 3.2 mmol/L (3.5-5.1); Sodium 136 mmol/L (136-145)
[2020-09-20] MEDS ORDERED: Potassium Chloride 20 MEQ TAB PO SCH (08:00)
[2020-09-20] MEDS: Apixaban 5 MG TAB PO SCH ×2 (09:12→21:05)
[2020-09-20] MEDS: Chlorhexidine Gluconate 15 ML UDCUP SSP SCH ×2 (09:12→21:06)
[2020-09-20] MEDS: Senokot 8.6 MG TAB PO SCH (09:12)
[2020-09-20] MEDS: Amlodipine 5 MG TAB PO SCH (09:12)
[2020-09-20] MEDS: Metoclopramide HCl 10 MG TAB PO SCH ×3 (09:12→16:56)
[2020-09-20] MEDS: Folic Acid 1 MG TAB PO SCH (09:12)
[2020-09-20] MEDS ORDERED: Potassium Chloride 20 MEQ in Premix Bag 1 BAG IVPB SCH (09:15)
[2020-09-20] MEDS: Metoprolol Tartrate 25 MG TAB PO SCH ×2 (09:36→21:06)
[2020-09-20] MEDS: Cefepime 2 GM in Sodium Chloride 0.9% 100 ML IVPB SCH ×2 (11:44→23:13)
--- NOTE | 2020-09-20 17:01 | PDOC.HOSPP ---
- Subjective Encounter Date: 09/20/20 Encounter Time: 16:59 Subjective: Mr. Key was seen today in follow-up of Pneumonia, and severe epigastric/chest pain. He says the pain is better controlled. He has decided to forgo surgery.He has been toerating a clear liquid diet. - Objective Vital Signs & Weight: Vital Signs (12 hours) Temp Pulse Resp BP Pulse Ox 09/20/20 15:35 97.9 F 101 H 16 100/56 L 94 L 09/20/20 13:41 83 20 87 L 09/20/20 11:20 97.6 F 97 16 124/66 97 09/20/20 09:36 93 L 09/20/20 09:12 109 H 09/20/20 07:04 98.2 F 109 H 16 127/71 93 L 09/20/20 06:46 105 H 18 93 L Weight Admit Weight 207 lb 11.2 oz Weight 207 lb 11.2 oz I&O: 09/19/20 09/20/20 09/21/20 06:59 06:59 06:59 Intake Total 3090 1595 Output Total 3800 900 Balance -710 695 Result Diagrams: 09/20/20 04:49 09/20/20 04:49 Hospitalist ROS - Medication Medications: Active Medications Generic Name Dose Route Start Last Admin Trade Name Freq PRN Reason Stop Dose Admin Albuterol/Ipratropium 3 ml 09/11/20 13:00 09/20/20 13:41 Ipratropium/Albuterol Sulfate 3 Ml Neb NEB 3 ml [id number] CHRISSIE Administration Amlodipine Besylate 5 mg 09/12/20 09:00 09/20/20 09:12 Amlodipine 5 Mg Tab PO Not Given DAILY CHRISSIE Apixaban 5 mg 09/12/20 09:00 09/20/20 09:12 Apixaban 5 Mg Tab PO Not Given BID CHRISSIE Chlorhexidine Gluconate 15 ml 09/15/20 21:00 09/20/20 09:12 Chlorhexidine Gluconate 15 Ml Udcup SSP Not Given BID CHRISSIE Fentanyl 50 mcg 09/19/20 17:00 09/19/20 17:30 Fentanyl 50 Mcg/Hour Patch TD 50 mcg Q3DAYS@1700 CHRISSIE Administration Folic Acid 1 mg 09/12/20 09:00 09/20/20 09:12 Folic Acid 1 Mg Tab PO Not Given DAILY CHRISSIE Gabapentin 100 mg 09/15/20 21:00 09/19/20 20:13 Gabapentin 100 Mg Cap PO 100 mg HS CHRISSIE Administration Hydromorphone HCl 0 mg 09/17/20 20:00 09/20/20 02:18 Hydromorphone 10 Mg/100 Ml Cadd IVPB 10 mg INF PRN Administration Pain Cefepime HCl 2 gm/ Sodium 100 mls @ 200 mls/hr 09/11/20 23:00 09/20/20 11:44 Chloride IVPB 100 mls 1100,2300 CHRISSIE Administration Vancomycin HCl 1.25 gm/ Device 250 mls @ 166.667 mls/hr 09/13/20 22:00 09/20/20 14:53 IVPB 250 mls 0600,1400,2200 CHRISSIE Administration Metoclopramide HCl 10 mg 09/12/20 08:00 09/20/20 16:56 Metoclopramide Hcl 10 Mg Tab PO 10 mg TID-WM CHRISSIE Administration Metoprolol Tartrate 25 mg 09/12/20 09:00 09/20/20 09:36 Metoprolol Tartrate 25 Mg Tab PO 25 mg BID CHRISSIE Administration Ondansetron HCl 4 mg 09/11/20 12:16 09/12/20 06:23 Ondansetron Pf 4 Mg/2 Ml Vial IVP 4 mg Q6H PRN Administration Nausea/Vomiting Pantoprazole Sodium 40 mg 09/15/20 21:00 09/20/20 09:36 Pantoprazole 40 Mg Tab PO 40 mg BID CHRISSIE Administration Polyethylene Glycol 17 gm 09/12/20 07:14 09/15/20 09:03 Polyethylene Glycol 3350 17 Gm Packet PO 17 gm DAILYPRN PRN Administration Constipation Promethazine HCl 25 mg 09/14/20 21:00 09/19/20 20:09 Promethazine 25 Mg Tab PO Not Given HS CHRISSIE Senna 3 tab 09/12/20 09:00 09/20/20 09:12 Senokot 8.6 Mg Tab PO Not Given DAILY [facility] Sodium Chloride 10 ml 09/16/20 21:00 09/20/20 09:12 Flush - Normal Saline 10 Ml Syringe IVF Not Given Q12HR [facility] Hospitalist Exam Vitals: Vital Signs (12 hours) Temp Pulse Resp BP Pulse Ox 09/20/20 15:35 97.9 F 101 H 16 100/56 L 94 L 09/20/20 13:41 83 20 87 L 09/20/20 11:20 97.6 F 97 16 124/66 97 09/20/20 09:36 93 L 09/20/20 09:12 109 H 09/20/20 07:04 98.2 F 109 H 16 127/71 93 L 09/20/20 06:46 105 H 18 93 L Weight Admit Weight 207 lb 11.2 oz Weight 207 lb 11.2 oz General Appearance: NAD, awake alert Eye: PERRL, anicteric sclera Heart: RRR, no murmur, no gallops, no rubs, normal peripheral pulses Respiratory: no wheezes, normal chest expansion, rales (at the right base) Gastrointestinal: soft, non-tender, non-distended, normal bowel sounds, no palpable masses, no hepatomegaly Extremities: no cyanosis, no edema Hosp A/P (1) Pneumonia Code(s): J18.9 - PNEUMONIA, UNSPECIFIED ORGANISM Status: Acute Qualifiers: Pneumonia type: due to Pneumococcus Laterality: right Lung location: lower lobe of lung Qualified Code(s): J13 - Pneumonia due to Streptococcus pneumoniae (2) HLD (hyperlipidemia) Code(s): E78.5 - HYPERLIPIDEMIA, UNSPECIFIED Status: Chronic Qualifiers: Hyperlipidemia type: unspecified Qualified Code(s): E78.5 - Hyperlipidemia, unspecified (3) HTN (hypertension) Code(s): I10 - ESSENTIAL (PRIMARY) HYPERTENSION Status: Chronic Qualifiers: Hypertension type: essential hypertension Qualified Code(s): I10 - Essential (primary) hypertension (4) Stage 4 lung cancer Code(s): C34.90 - MALIGNANT NEOPLASM OF UNSP PART OF UNSP BRONCHUS OR LUNG Status: Chronic Qualifiers: Laterality: right Qualified Code(s): C34.91 - Malignant neoplasm of unspecified part of right bronchus or lung (5) Chronic pain due to neoplasm Code(s): G89.3 - NEOPLASM RELATED PAIN (ACUTE) (CHRONIC) Status: Acute (6) Venous thromboembolism Code(s): I82.90 - ACUTE EMBOLISM AND THROMBOSIS OF UNSPECIFIED VEIN Status: Acute (7) Anticoagulant long-term use Code(s): Z79.01 - MANAGER PERFORMANCE (CURRENT) USE OF ANTICOAGULANTS Status: Chronic (8) Acalculous cholecystitis Code(s): K81.9 - CHOLECYSTITIS, UNSPECIFIED Status: Acute (9) Metastatic cancer to spine Code(s): C79.51 - SECONDARY MALIGNANT NEOPLASM OF BONE Status: Acute - Plan * Pneumonia in immuno-compromised patient- continue the current regimen while in the hospital * Biliary Colic- continue conservative measures, and advance diet to a low fat diet * Metastatic Spinal disease- he does not have any lower extremity weakness- We discussed having Radiation Oncology consult here at our facility vs. with his regular Oncology team- he would prefer to pursue any additional treatment on his spine to his regular Oncology team * HTN- blood pressure is stable * Stage 4 lung cancer * History of VTE- continue Eliquis * Hypokalemia - continue to monitor * Anticipate home tomorrow, on an oral antibiotic to complete his regimen, and an oral regimen for pain as outlined by Anesthesia. ( TRIMMER MACHINE pump will be d iscontinued in the AM.
--- NOTE | 2020-09-20 17:24 | PRG ---
DATE OF SERVICE: 09/20/2020 The patient remains in the oncology floor. He is a patient we are seeing in consultation for acute acalculous cholecystitis that is clinically improving. The patient is undergoing active chemotherapy for small-cell lung cancer. Dr. Maguire had a lengthy discussion with him and his family yesterday regarding treatment options first including observation and await for recurrence of pain. Second option was cholecystostomy tube, which Dr. Maguire recommended as it would not interrupt his chemotherapy or the third option was to undergo laparoscopic cholecystectomy, which would interrupt his chemotherapy for several weeks. This morning, the patient has not heard back from his oncologist who he would like input from. He is tolerating a clear liquid diet. We recommend that he can advance as tolerated. The patient remains stable from a surgical standpoint. Once his decision is made, we can be contacted to help facilitate arranging his percutaneous cholecystostomy tube or should he decide for surgical intervention. We will assist with that also. Dr. Robbins is the general surgeon on-call this weekend. We will continue to follow from a distance until decision is made. Should the patient decide to be discharged and seek treatment near his oncologist that is completely appropriate also. The patient was evaluated this morning with Dr. Maguire during rounds. Job ID: [id number]
[2020-09-20] MEDS: Promethazine 25 MG TAB PO SCH (21:05)
[2020-09-20] MEDS: Gabapentin 100 MG CAP PO SCH (21:06)
[2020-09-21] MEDS: VANCOMYCIN 1.25 GM/250 ML BAG 1.25 GM in Premix Bag 1 BAG IVPB SCH (05:07)
[2020-09-21] MEDS ORDERED: Electrolyte Replacement Protocol FS PRN (07:45)
[2020-09-21] MEDS ORDERED: Electrolyte Replacement Protocol 1 EACH FS SCH (07:45)
[2020-09-21 08:34] LABS: Magnesium 1.7 mg/dL (1.6-2.6); Phosphorus 2.8 mg/dL (2.3-4.7)
[2020-09-21] MEDS ORDERED: Magnesium 2 GM/50 ML 2 GM in Premix Bag 1 BAG IVPB SCH (09:00)
[2020-09-21] MEDS ORDERED: Potassium Chloride 20 MEQ TAB PO SCH ×2 (09:00→13:45)
[2020-09-21] MEDS: Amlodipine 5 MG TAB PO SCH (09:11)
[2020-09-21] MEDS: Apixaban 5 MG TAB PO SCH (09:12)
[2020-09-21] MEDS: Senokot 8.6 MG TAB PO SCH (09:12)
[2020-09-21] MEDS: Chlorhexidine Gluconate 15 ML UDCUP SSP SCH (09:12)
[2020-09-21] MEDS: Metoclopramide HCl 10 MG TAB PO SCH ×3 (09:12→16:19)
[2020-09-21] MEDS: Metoprolol Tartrate 25 MG TAB PO SCH (09:12)
[2020-09-21] MEDS: Folic Acid 1 MG TAB PO SCH (09:12)
[2020-09-21] MEDS: Cefepime 2 GM in Sodium Chloride 0.9% 100 ML IVPB SCH (10:49)
[2020-09-21 11:55] LABS: ALT (SGPT) 39 U/L (8-55); AST (SGOT) 21 U/L (5-34); Albumin 2.6 g/dL (3.4-4.8); Alkaline Phosphatase 449 U/L (40-110); Anion Gap 12 mmol/L (10-20); BUN (Urea Nitrogen) 6 mg/dL (8.4-25.7); Bilirubin, Total 0.9 mg/dL (0.2-1.2); Calc. Creatinine Clearance 155 mL/min (70-130); Calcium 8.2 mg/dL (7.8-10.44); Carbon Dioxide 25 mmol/L (23-31); Chloride 103 mmol/L (98-107); Glucose 108 mg/dL (80-115); Potassium 3.4 mmol/L (3.5-5.1); Protein, Total 6.6 g/dL (5.8-8.1); Sodium 137 mmol/L (136-145)
[2020-09-21 16:45] VITALS: BP 131/74; TEMP 98.8
--- NOTE | 2020-09-21 17:14 | PDOC.DS.DS ---
Provider Date of Admission: 09/11/20 12:15 Date of Discharge: 09/21/20 Admitting Provider: Juan David Zamora Consultations: General Surgery, Neurosurgery Primary Care Physician: OUT OF TOWN Course Hospital Course: Patient is a 64-year-old male with stage IV lung cancer, hypertension and hyperlipidemia presented to the hospital on 09/11 with chest pain that woke him up from sleep. He was seen in the emergency room the day before admission. CT scan of the chest was negative was negative for pulmonary embolism. It showed some right lower lobe consolidation due to atelectasis, posttreatment change or pneumonia with osseous metastasis without pathologic fracture. There was also hilar and mediastinal lymphadenopathy due to metastasis. Please refer to the history and physical dated 09/11 for further details. The patient was admitted to the hospital with a diagnosis of sepsis due to pneum onia. He was started on vancomycin with cefepime along with nebulizer treatment. His blood culture remained negative. His WBC count on admission was 1.9 with 20% bandemia. He was evaluated by oncology service. Chest, abdomen and pelvis CT scan was consistent with distention of the gallbladder with mild pericholecystic inflammatory stranding. On 09/17 the chest discomfort continue to worsen. He was started on PREPARATORY TECHNICIAN. Due to gallbladder swelling on the CT scan he underwent HIDA scan on 09/18 that showed nonvisualization of the gallbladder over a 90-minute timeframe concerning for acute cholecystitis on the basis of cystic duct obstruction. He was evaluated by general surgery. He was given various options including cholecystostomy tube which he declined. Patient is tolerating fat restricted diet. Cefepime will be transitioned to Vantin for another 10 days after discussion with infectious disease. He also had electrolyte abnormalities which has been replaced. Patient also had MRI of the lumbar and thoracic spine that was consistent with metastasis. For this reason he was also evaluated by neurosurgery Final diagnosis: Chest discomfort on admissionmultifactorial Sepsis due to pneumonia suspected gram-negativepresent on admission Acute cholecystitisdeclined surgical intervention Stage IV lung cancer Hypertension Hyperlipidemia Chronic pain syndrome History of venous thromboembolism on anticoagulation Spinal metastasis Chronic anemia probably due to nutritional deficiency versus chemotherapy Penicillin allergy Hyponatremia/hypokalemia/hypomagnesium Resuscitation Status: 09/11/20 12:16 Resuscitation Status Routine Resuscitation Status: FULL: Full Resuscitation Lab Results: 09/20/20 04:49 09/21/20 08:00 Abnormal Lab Results - Last 48 hrs 09/20/20 04:49: Potassium 3.2 L, BUN 6 L, Creatinine 0.61 L 09/20/20 04:49: RBC 2.91 L, Hgb 8.0 L, Hct 26.2 L, MCHC 30.7 L, RDW 18.9 H, MPV 6.7 L, Neutrophils % 80.6 H, Lymphocytes % 7.6 L, Monocytes % 11.4 H, Neutrophils # 7.7 H, Lymphocytes # 0.7 L, Monocytes # 1.1 H 09/21/20 08:00: Potassium 3.4 L, BUN 6 L, Creatinine 0.66 L, Alkaline Phosphatase 449 H, Albumin 2.6 L, Globulin 4.0 H, Albumin/Globulin Ratio 0.7 L Microbiology - Entire Visit 09/11/20 12:39 Venous blood - Right Hand Blood Culture - Final NO GROWTH IN 5 DAYS 09/11/20 12:42 Venous blood - Left Hand Blood Culture - Final NO GROWTH IN 5 DAYS Vitals: Vital Signs (12 hours) Temp Pulse Resp BP Pulse Ox 09/21/20 16:44 98.8 F 104 H 18 131/74 93 L 09/21/20 13:27 81 16 09/21/20 11:26 97.7 F 99 16 116/61 91 L 09/21/20 09:11 102 H 09/21/20 08:00 95 09/21/20 07:13 97.3 F L 102 H 18 108/60 95 09/21/20 06:15 86 16 Weight Admit Weight 207 lb 11.2 oz Weight 207 lb 11.2 oz Physical Exam: The patient was seen and examined on the day of discharge. General Appearance: NAD Neck: supple Respiratory: no wheezes, no ronchi Cardiovascular: RRR, no gallops Gastrointestinal: soft, no guarding, no rigidity Plan Prescriptions: Cefpodoxime Proxetil [Vantin] 200 mg PO Q12HR #20 tablet Cefpodoxime Proxetil [Vantin] 200 mg PO Q12HR #20 tablet Gabapentin [Neurontin] 100 mg PO HS #30 cap Gabapentin [Neurontin] 100 mg PO HS #30 cap Home Medications: Medication Instructions Recorded Confirmed Type Acetaminophen [Tylenol] 325 mg PO Q6HR PRN 09/11/20 09/11/20 History Amlodipine [Norvasc] 5 mg PO DAILY 09/11/20 09/11/20 History Apixaban [Eliquis] 1 tab PO BID 09/11/20 09/11/20 History Cetirizine HCl [Zyrtec] 10 mg PO DAILY 09/11/20 09/11/20 History Folic Acid 1 mg PO DAILY 09/11/20 09/11/20 History HYDROmorphone HCl [Hydromorphone 1 tab PO Q4HR PRN 09/11/20 09/11/20 History HCl] Metoclopramide HCl 1 tablet PO TID-WM 09/11/20 09/11/20 History Metoprolol Tartrate 25 mg PO BID 09/11/20 09/11/20 History Omeprazole 40 mg PO DAILY 09/11/20 09/11/20 History Ondansetron [Zofran ODT] 8 mg PO Q8HR PRN 09/11/20 09/11/20 History Polyethylene Glycol 3350 [Miralax] 17 gm PO DAILY PRN 09/11/20 09/11/20 History Promethazine [Phenergan] 1 tab PO DAILY 09/11/20 09/11/20 History Sennosides [Senna] 3 tab PO DAILY 09/11/20 09/11/20 History fentaNYL [Duragesic] 50 mcg TD Q3DAYS 09/11/20 09/11/20 History Gabapentin [Neurontin] 100 mg PO HS #30 cap 09/17/20 Rx Cefpodoxime Proxetil [Vantin] 200 mg PO Q12HR #20 tablet 09/21/20 Rx Cefpodoxime Proxetil [Vantin] 200 mg PO Q12HR #20 tablet 09/21/20 Rx Gabapentin [Neurontin] 100 mg PO HS #30 cap 09/21/20 Rx Allergies: codeine Allergy (Verified 09/11/20 18:14) "builds up in system" lisinopril Allergy (Verified 09/11/20 18:14) tachycardia Penicillins Allergy (Verified 09/11/20 18:14) Rash Discharge Instructions:: Follow-up with your Primary Care Provider in 1 week Please check CMP or Chem 7 at that time Activity:: Activity as Tolerated Nourishment:: Heart Healthy Diet Referrals: [facility] PHYSICIAN,OUT OF [Primary Care Provider] - 3 Days Doe Maguire DO [Active] - 7 Days Disposition: HOME Quality CORE MEASURES:: N/A
== END 2020-09-21 18:18 | disposition home or self-care (01) | DRG 871 ==
LOC: ERS 09:22 → ERHOLD 12:15 → ONC 15:20
PROVIDERS: ADMIT Internal Medicine; ATTEND Internal Medicine
DX: A40.3 Sepsis due to Streptococcus pneumoniae (principal); J13 Pneumonia due to Streptococcus pneumoniae; C34.90 Malignant neoplasm of unspecified part of unspecified bronchus or lung; C79.51 Secondary malignant neoplasm of bone; E87.1 Hypo-osmolality and hyponatremia; K81.0 Acute cholecystitis; Z20.822 Contact with and (suspected) exposure to COVID-19; I10 Essential (primary) hypertension; G89.4 Chronic pain syndrome; E78.5 Hyperlipidemia, unspecified; D53.9 Nutritional anemia, unspecified; D64.81 Anemia due to antineoplastic chemotherapy; T45.1X5A Adverse effect of antineoplastic and immunosuppressive drugs, initial encounter; E87.6 Hypokalemia; G89.3 Neoplasm related pain (acute) (chronic); D70.1 Agranulocytosis secondary to cancer chemotherapy; E83.42 Hypomagnesemia; Z88.0 Allergy status to penicillin; Z88.5 Allergy status to narcotic agent; Z88.8 Allergy status to other drugs, medicaments and biological substances; Z79.899 Other long term (current) drug therapy; Z79.01 Long term (current) use of anticoagulants; Z90.49 Acquired absence of other specified parts of digestive tract; Z98.890 Other specified postprocedural states; Z98.52 Vasectomy status; Z86.718 Personal history of other venous thrombosis and embolism
CPT/HCPCS: 36415; 71260; 71275; 72157; 72158; 74177; 78227; 80048; 80053; 80202; 81003; 81015; 83605; 83690; 83735; 84100; 84145; 85007; 85025; 85027; 87040; 90471; 90670; 93005; 94640; 96365; 96375; A9537; A9579; G0009; J0692; J1447; J1885; J2270; J2405; J3370; J3475; J3480; J3490; J7050; J7620; Q0169; Q9967